=== PATIENT | female | born 2000 | race Caucasian/White ===

== ENCOUNTER 2024-05-16 14:23 | Emergency (ER) | payer MEDICAID, SELFPAY ==
--- NOTE | 2024-05-16 14:25 | EKG_ITS ---
[facility] Test Date: 2024-05-16 Pat Name: TYRESE DANIELS Department: Room: - Gender: Female Public Health Nurse: : 2000 Requested By: ED Temporary Provider Order Number: [id number] Reading MD: ED Temporary Provider Measurements Intervals [place] Rate: 92 P: 41 [place]: 96 QRS: 77 QRSD: 94 T: 55 QT: 364 QTc: 452 Interpretive Statements SINUS RHYTHM WITH SHORT [place] INTERVAL Compared to ECG 04/30/2024 14:24:09 T-wave abnormality no longer present Possible ischemia no longer present /store/S0/[id number]
[2024-05-16 14:53] VITALS: BP 116/78; PULSE 97; RESP 18; TEMP 36.8; O2SAT 98; BMI 24.8
--- NOTE | 2024-05-16 15:29 | PD.EDRME ---
Rapid Medical Screening Exam RME Arrival date/time: 05/16/24 14:23 Chief Complaint: Arrhythmia/Palpitations Time Seen by Provider: 05/16/24 14:44 Vital signs: Vital Signs Temperature 98.2 F 05/16/24 14:53 Pulse Rate 97 05/16/24 14:53 Respiratory Rate 18 05/16/24 14:53 Blood Pressure 116/78 05/16/24 14:53 Pulse Oximetry (%) 98 05/16/24 14:53 Oxygen Delivery Method Room Air 05/16/24 14:53 Vital signs reviewed by provider: Yes RME Narrative: 24-year-old female presents for evaluation of persistent palpitations x 3 months. She reports sensation of irregular heartbeat and lightheadedness. She notes intermittent substernal chest pain. Denies cough, fever, rash, weight loss. She is pending and outpatient workup with cardiology in July.
[2024-05-16 15:48] LABS: Basophils # (Auto) 0.1 Thou/mm3 (0.0-0.2); Basophils % (Auto) 1 % (0-2.5); Eosinophils # (Auto) 0.3 Thou/mm3 (0.0-0.5); Eosinophils % (Auto) 3 % (0-10); Hematocrit 38.5 % (36.0-46.0); Hemoglobin 12.8 g/dL (12.0-16.0); Immature Granulocytes % (Auto) 0 % (0-0); Immature Granulocytes Auto 0.04 Thou/mm3 (0.00-0.00); Lymphocytes # (Auto) 1.7 Thou/mm3 (1.0-4.8); Lymphocytes % (Auto) 16 % (10-50); Mean Corpuscular HGB Conc 33.2 g/dl (31.0-37.0); Mean Corpuscular Hemoglobin 27.4 pg (25.0-35.0); Mean Corpuscular Volume 82 fL (80-100); Monocytes # (Auto) 0.9 Thou/mm3 (0.0-0.8); Monocytes % (Auto) 9 % (0-12); Neutrophils # (Auto) 7.1 Thou/mm3 (1.8-7.7); Neutrophils % (Auto) 71 % (37-80); Nucleated Red Blood Cell % 0 /100 WBC (0); Platelet Count 311 Thou/mm3 (140-440); RDW Standard Deviation 40.9 fL (36.4-46.3); Red Blood Count 4.68 Miln/mm3 (4.00-5.20); White Blood Count 10.1 Thou/mm3 (3.6-11.0)
[2024-05-16 15:58] LABS: Partial Thromboplastin Time 28.2 Seconds (22.0-36.0); Prothrombin Time 11.2 Seconds (9.0-12.2)
[2024-05-16 16:04] LABS: B-Type Natriuretic Peptide < 20 pg/mL (0-100)
[2024-05-16 16:18] LABS: Collection Type, Urine Clean Catch
[2024-05-16 16:21] LABS: Alanine Aminotransferase 9 U/L (10-49); Albumin, Serum 4.8 gm/dL (3.5-5.0); Albumin/Globulin Ratio 1.8 (1.2-2.2); Alkaline Phosphatase 89 U/L (46-116); Anion Gap 6 (7-16); Aspartate Amino Transferase 12 U/L (0-34); BUN/Creatinine Ratio 12 Ratio (12-20); Bilirubin,Total 0.8 mg/dL (0.3-1.2); Blood Urea Nitrogen 7 mg/dL (9-23); Calcium 9.7 mg/dL (8.3-10.6); Calcium (Corrected) 9.7 mg/dL (8.5-10.1); Carbon Dioxide 25.7 mMol/L (20.0-31.0); Chloride 105 mMol/L (98-107); Creatinine (Component) 0.6 mg/dL (0.6-1.3); Estimated Creatinine Clearance 122.8 mL/min (>60); Globulin 2.7 gm/dL (2.3-3.5); Glucose 90 mg/dL (74-106); Osmolality,Calculated 271 (275-295); Potassium 3.9 mMol/L (3.4-5.1); Sodium 137 mMol/L (136-145); Thyroid Stimulating Hormone 0.77 uIU/mL (0.55-4.78); Total Protein 7.5 gm/dL (5.7-8.2); Troponin I < 0.002 ng/mL (0.0-0.045); eGFR > 60 See Note
[2024-05-16 16:32] LABS: HCG Qualitative,Urine Negative
[2024-05-16 16:36] LABS: Bilirubin,Urine Negative (Negative); Blood,Urine Negative (Negative); Clarity,Urine Clear (Clear/Hazy); Color,Urine Colorless (Lt Yel-Yel); Glucose, Urine Negative (Negative); Ketones,Urine Negative (Negative); Leukocyte Esterase,Urine Positive (Negative); Nitrite,Urine Negative (Negative); PH,Urine 6.5 (5.0-7.0); Protein,Urine Negative (Neg - Trace); RBC,Urine 1 /hpf (0-3); Specific Gravity,Urine 1.009 (1.001-1.035); Squamous Epithelial Cell,Urine 11 /hpf (0-5); Urobilinogen,Urine Negative mg/dL (0.0-1.0); WBC,Urine 4 /hpf (0-5)
[2024-05-16 16:50] LABS: Amphetamine/Methamp Scrn,U Negative (Negative); Barbiturate Screen,Urine Negative (Negative); Benzodiazepines Screen,Urine Negative (Negative); Benzoylecgonine Screen, Ur Negative (Negative); Fentanyl Screen,Urine Negative (Negative); Opiate Screen,Urine Negative (Negative); THC Screen,Urine Negative (Negative)
--- NOTE | 2024-05-16 17:31 | PC.NURSE ---
PT REQUESTING NOT TO HAVE X-RAY DONE DUE TO HER NOT WANTING TO BE EXPOSED TO TO MUCH RADIATION. WILL INFORM PROVIDER AT THIS TIME
--- NOTE | 2024-05-16 17:39 | PD.EDARRY ---
ED Arrhythmia Palp. RME/HPI General Chief Complaint: Arrhythmia/Palpitations Stated Complaint: PALPATIONS WITH CHEST PAIN Time Seen by Provider: 05/16/24 14:44 Arrival date/time: 05/16/24 14:23 Limitations: no limitations RME / HPI RME / HPI narrative: 24-year-old female presents for evaluation of persistent palpitations x 3 months. She reports sensation of irregular heartbeat and lightheadedness. She notes intermittent substernal chest pain. Denies cough, fever, rash, weight loss. She is pending and outpatient workup with cardiology in July. Related Data Home Medications ?Medication ?Instructions ?Recorded ?Confirmed vit no.37-iron fum 29 mg 37 tab PO QDAY 02/24/19 10/31/22 iron-folic acid 1 mg chewable tablet (PreNata) Previous Rx's ?Medication ?Instructions ?Recorded methocarbamol 750 mg tablet 750 mg PO Q8H spasm #24 tabs 02/24/24 meclizine 25 mg tablet 25 mg PO BID #14 tabs 04/30/24 naproxen 500 mg tablet (Naprosyn) 500 mg PO BID PRN pain #20 tabs 05/23/24 Allergies Allergy/AdvReac Type Severity Reaction Status Date / Time No Known Allergies Allergy Verified 05/23/24 11:01 Review of Systems Constitutional Constitutional: Denies excessive sweating, Denies fever(s), Denies headache(s), Denies poor appetite, Denies night sweats and Denies weakness ENT Ears, Nose, Mouth, and Throat: Denies dizziness, Denies headache(s) and Denies neck pain Cardiovascular Cardiovascular: Denies acrocyanosis, Denies chest pain, Denies diaphoresis, Denies dyspnea, Denies leg edema, Denies lightheadedness, Reports palpitations, Reports rapid heart rate and Denies syncope Respiratory Respiratory: Denies cough, Denies dyspnea, Denies hemoptysis and Denies wheezing Gastrointestinal Gastrointestinal: Denies abdominal pain, Denies nausea and Denies vomiting Genitourinary Genitourinary: Denies dysuria and Denies hematuria Musculoskeletal Musculoskeletal: Denies back pain, Denies muscle weakness and Denies neck pain Integumentary/Breasts Skin/Breast: Denies rash Neurologic Neurologic: Denies dizziness, Denies headache(s), Denies seizure-like activity, Denies syncope and Denies weakness Endocrine Endocrine: Denies excessive sweating and Reports palpitations Allergic/Immunologic Allergic/Immunologic: Denies wheezing Past Medical History Past Medical History CARDIAC: Negative Cardiac Disorders or Congestive Heart Failure RESPIRATORY: Negative Chronic Obstructive Pulmonary Disease (COPD) or Asthma GENITOURINARY: Negative Renal Disease REPRODUCTIVE: Positive Pelvic Inflammatory Disease ENDOCRINE: Negative Diabetes Mellitus Type 1 or Diabetes Mellitus Type 2 HEMATOLOGIC: Negative Sickle Cell Disease Social History SMOKING STATUS: Never smoker ED Exam General Limitations: Present no limitations General appearance: Present alert and in no apparent distress Head Head exam: Present atraumatic and normocephalic Eye Eye exam: Present normal appearance and EOMI; Absent scleral icterus ENT ENT exam: Present normal oropharynx and mucous membranes moist Neck Neck exam: Present normal inspection and full ROM Chest Chest inspection: Present normal inspection and symmetric chest wall rise Respiratory Respiratory exam: Present normal lung sounds bilaterally; Absent respiratory distress or wheezes Cardiovascular Cardiovascular exam: Present regular rate, normal heart sounds and +S1 Abdominal Exam Abdominal exam: Present soft; Absent distention or tenderness Extremities Exam Extremities exam: Present normal inspection, full ROM and normal capillary refill; Absent pedal edema or calf tenderness Neurological Exam Neurological exam: Present alert and normal gait Psychiatric Psychiatric exam: Present normal affect Skin Skin exam: Present warm and dry; Absent cyanosis Course Quality Measures none Orders Category Date Time Status EKG (ED ONLY) *Do not use* NOW Care 05/16/24 14:25 Completed EKG (ED ONLY) *Do not use* NOW Care 05/16/24 15:29 Completed EKG (ED Only) Stat Exams 05/16/24 14:25 Draft EKG (ED Only) Stat Exams 05/16/24 15:29 Ordered XR chest 2V Stat Exams 05/16/24 15:29 Stop Req B-Type Natriuretic Peptide Stat Lab 05/16/24 15:37 Completed CBC Stat Lab 05/16/24 15:37 Completed Comprehensive Metabolic Panel Stat Lab 05/16/24 15:37 Completed Drug Screen,Urine Stat Lab 05/16/24 15:58 Completed HCG Qualitative,Urine Stat Lab 05/16/24 15:58 Completed Magnesium Stat Lab 05/16/24 15:37 Completed Partial Thromboplastin Time Stat Lab 05/16/24 15:37 Completed Prothrombin Time with INR Stat Lab 05/16/24 15:37 Completed Thyroid Stimulating Hormone Stat Lab 05/16/24 15:37 Completed Troponin I Stat Lab 05/16/24 15:37 Completed Urinalysis Stat Lab 05/16/24 15:58 Completed Vital Signs Vital signs: Vital Signs Temperature 98.2 F 05/16/24 14:53 Pulse Rate 97 05/16/24 14:53 Respiratory Rate 18 05/16/24 14:53 Blood Pressure 116/78 05/16/24 14:53 Pulse Oximetry (%) 98 05/16/24 14:53 Oxygen Delivery Method Room Air 05/16/24 14:53 Pulse ox 98% on room air, within normal limits. Arrhythmia/Palpitations MDM Narrative MDM Narrative:: 24-year-old female presents the ED for evaluation of palpitations that have been intermittent for the last several months. Vital signs reassuring. Cardiac workup today showed no evidence of ACS, no A-fib or gross arrhythmia captured on EKG. Thyroid stimulating hormone within normal limits, pointing away from thyroid disorder. No gross electrolyte abnormalities or evidence of anemia. Chest x-ray today was deferred at patient's request given her concern for recurrent exposure to radiation. Ultimately the patient was discharged home with plan to follow-up with outpatient cardiology appointment in July. I spoke with patient at length regarding her results and advised her to closely monitor her caffeine intake, try to properly hydrate p.o. fluids and ensure adequate sleep. Strict return precautions were provided. Patient was agreeable with plan to follow-up with primary care in the next 2 to 3 days for reevaluation and possible earlier scheduling with cardiology. Patient was stable at time of discharge. Patient data External records reviewed:: [facility] previous records Clinical information provided by:: patient Social determinants that could affect healthcare access:: none Patient has the following chronic illnesses:: None reported. How is presenting disease/condition affected by chronic disease/condition?: no chronic disease Evaluation data The following diagnostics were reviewed and interpreted by me:: lab results, radiology exam(s) and EKG tracing(s) Lab and/or radiology exams considered but not ordered:: Considered not ordered. Interpretation Summary: EKG with nonspecific ST changes, normal rate, no ST elevations or depressions. No gross electrolyte abnormality or evidence of endorgan damage. No evidence of acute hemorrhage or systemic infection. Medications / Prescriptions Medications or Prescriptions considered but not ordered:: Considered not ordered. Medication administrations:: Considered nonoperative. Consultations Consultation(s) initiated? (list below): No Diagnosis Differential diagnosis arrhythmia/palpitations: palpitations, anxiety, sinus tachycardia, artial fibrillation, artial flutter, supraventricular tachycardia, ventricular tachycardia, WPW and other (Anemia, thyroid disorder.) Most likely diagnosis given after review of the tests above:: Nonspecific palpitations. Admission Indicated Admission indicated?: not indicated Admission Request Was there a request for admission?: No Disposition Plan Disposition Plan: Discharge Discharge Attestation Discharge Attestation: The patient and all family members were given an opportunity to ask questions and understood the discharge instructions. Discharge instructions specifically effects, indications for sooner follow up or return to the emergency department, and the expected course of current diagnosis. Patient condition: Stable Discharge Plan Plan Patient Disposition: HOME (Self Care) Disposition Comment: stable Prescriptions/Referrals Prescriptions/Med Rec: No Action PreNata 29 mg iron- 1 mg Tablet,Chewable 37 tab PO QDAY methocarbamol 750 mg tablet 750 mg PO Q8H Qty: 24 0RF meclizine 25 mg tablet 25 mg PO BID Qty: 14 0RF naproxen [Naprosyn] 500 mg tablet 500 mg PO BID PRN (Reason: pain) Qty: 20 0RF Referrals: Ptarice Sheppard MD [Primary Care Provider] - In 1 week Problem List Clinical Impression: Palpitations, Anxiety Patient/Caregiver Discharge Instructions Other Activity Instructions:: Follow-up with primary care in the next 24 to 48 hours for reevaluation of symptoms. Continue to hydrate to thirst. Follow-up with cardiology referral as planned in July. Return to the ED if your symptoms worsen or change. Education Materials: ED Palpitations Print Language: Irish Stand Alone Forms: Elenita Award Info., Patient Portal Info Letter PA/[employer] SERVICES MANAGER Supervising Physician PA/[employer] SERVICES MANAGER Supervising Physician: Dr. Dyer
--- NOTE | 2024-05-16 18:13 | PC.NURSE ---
PATIENT STATES THAT SHE DOES NOT WANT A FULL WORKUP AND WOULD LIKE TO BE DISCHARGED; ED PROVIDER MADE AWARE AND DISCHARGE INSTRUCTIONS PREPARED, GIVEN TO, AND SIGNED BY PATIENT.
== END 2024-05-16 18:15 | disposition home or self-care (01) ==
PROVIDERS: Physician Assistant; Emergency Provider Emergency Medicine; PCP Family Medicine
DX: F41.9 Anxiety disorder, unspecified (principal); R00.2 Palpitations
CPT/HCPCS: 36415; 80053; 80307; 81001; 81025; 83735; 83880; 84443; 84484; 85025; 85610; 85730; 93005; 99283

== ENCOUNTER 2024-05-23 10:58 | Emergency (ER) | payer MEDICAID, SELFPAY ==
[2024-05-23 10:59] VITALS: BMI 24.8
[2024-05-23 11:17] VITALS: BP 111/71; PULSE 98; RESP 18; TEMP 37; O2SAT 98
--- NOTE | 2024-05-23 11:27 | XR_ITS ---
Examination: PA lateral chest 2 views Technique: Upright PA lateral chest 2 views Exam date and time: May 23, 2024 1209 hrs. Indications: Chest pain beginning several days ago. Findings: Normal heart size The lungs are clear The osseous structures are intact Impression: No active disease
[2024-05-23] MEDS: KETOROLAC INJ 60 MG/2 ML VIAL IM (11:35)
--- NOTE | 2024-05-23 13:12 | EDNOTE_ITS ---
ED SOB =RME/HPI General Chief Complaint: Shortness of Breath/Dyspnea Stated Complaint: CHEST PAIN WITH SOB, WORSENED THIS AM Time Seen by Provider: 05/23/24 11:11 Source: patient Arrival date/time: 05/23/24 10:58 This is a 24-year-old female who presented to the emergency department with acute left-sided chest pain that began this morning. Patient reports that pain was exacerbated with movement and deep inspiration. Reports that she slept with her 1-year-old baby is unsure if she might have slept in the wrong position. Did take Tylenol at home with no relief of symptoms prompting her ED visit today. Mode of arrival: ambulatory Related Data Home Medications ?Medication ?Instructions ?Recorded ?Confirmed vit no.37-iron fum 29 mg 37 tab PO QDAY 02/24/19 10/31/22 iron-folic acid 1 mg chewable tablet (PreNata) Previous Rx's ?Medication ?Instructions ?Recorded methocarbamol 750 mg tablet 750 mg PO Q8H spasm #24 tabs 02/24/24 meclizine 25 mg tablet 25 mg PO BID #14 tabs 04/30/24 naproxen 500 mg tablet (Naprosyn) 500 mg PO BID PRN pain #20 tabs 05/23/24 Allergies Allergy/AdvReac Type Severity Reaction Status Date / Time No Known Allergies Allergy Verified 05/23/24 11:01 Review of Systems Review of Systems Systems Reviewed: All systems reviewed, normal except as documented Narrative Review of Systems: Gen: No fever, no chills, no weight loss EYES: No discharge, no visual changes, no pain HEENT: No ear pain, no congestion, no sore throat PULM: No shortness of breath, no cough, no congestion CV: +chest pain worsening with deep inspiration and movement, no dyspnea on exertion, no palpitations GI: No nausea, no vomiting, no diarrhea, no pain, no constipation : No frequency, no urgency,? no dysuria Musc/skel: No joint pain, no back pain Skin: No rash? \ ED Exam Narrative Physical exam: General: Sittiing in Exam table in no acute distress, answering questions appropriately HENT: normocephalic, atraumatic, EOMI, PERRLA, moist mucous membranes Chest: chest wall is nontender Cardiac: regular rate and rhythm, normal S1 and S2, no murmurs, rubs, or gallops, capillary refill ?2 seconds Pulmonary: clear to auscultation bilaterally, no wheezing, crackles, or rhonchi Abdominal: active bowel sounds, soft, nontender, nondistended Neuro: A&OX3, CN II-XII intact, sensation grossly intact bilaterally in UE and LE. Skin: no rashes, no ecchymosis Ext: no lower extremity edema Course Quality Measures none Orders Category Date Time Status EKG (ED ONLY) *Do not use* NOW Care 05/23/24 11:28 Completed EKG (ED Only) Stat Exams 05/23/24 11:27 Ordered XR chest 2V Stat Exams 05/23/24 11:27 Completed Ketorolac Inj [Toradol Inj] Med 05/23/24 11:28 Discontinued 60 mg IM X1 ONE Vital Signs Vital signs: Vital Signs Temperature 98.6 F 05/23/24 11:17 Pulse Rate 98 05/23/24 11:17 Respiratory Rate 18 05/23/24 11:17 Blood Pressure 111/71 05/23/24 11:17 Pulse Oximetry (%) 98 05/23/24 11:17 Oxygen Delivery Method Room Air 05/23/24 11:17 Shortness of Breath / Dyspnea MDM Narrative MDM Narrative:: This is a 24-year-old female who presented to the emergency department with acute left-sided chest pain that began this morning. Patient reports that pain was exacerbated with movement and deep inspiration. Reports that she slept with her 1-year-old baby is unsure if she might have slept in the wrong position. Did take Tylenol at home with no relief of symptoms prompting her ED visit today. Chest x-ray completed no active disease. No full cardiac workup initiated due to patient's low risk history. Patient's pain is more exacerbated with deep inspiration and movement. She was given pain medication which relieved her symptoms. She will be discharged with follow-up with her PCP. Strict ER precautions given Patient data External records reviewed:: [facility] previous records Clinical information provided by:: patient Social determinants that could affect healthcare access:: none Patient has the following chronic illnesses:: History of anxiety How is presenting disease/condition affected by chronic disease/condition?: uneffected by Evaluation data The following diagnostics were reviewed and interpreted by me:: radiology exam(s) and EKG tracing(s) Lab and/or radiology exams considered but not ordered:: No Interpretation Summary: EKG medically necessary in the evaluation of chest pain and interpreted by me and ED physician at the time of patient evaluation. Normal sinus rhythm with a rate of 85. [place] and QT intervals within normal limits. No ST/T changes. No STEMI. Interpretation: Normal EKG Examination: PA lateral chest 2 views Technique: Upright PA lateral chest 2 views Exam date and time: May 23, 2024 1209 hrs. Indications: Chest pain beginning several days ago. Findings: Normal heart size The lungs are clear The osseous structures are intact Impression: No active disease Medications / Prescriptions Medications or Prescriptions considered but not ordered:: no Medication administrations:: Medication Administration History Discontinued Medications Ketorolac Tromethamine (Ketorolac Inj 60 Mg/2 Ml Vial) 60 mg IM X1 ONE Stop: 05/23/24 11:29 Last Admin: 05/23/24 11:35 Dose: 60 mg Documented By: JAYCE All medications administered and effective Consultations Consultation(s) initiated? (list below): No Diagnosis Shortness of Breath Differential Diagnosis: other (costochondritis, bronchitis, pneumonia,) Most likely diagnosis given after review of the tests above:: Costochondritis Admission Indicated Admission indicated?: not indicated Admission Request Was there a request for admission?: No Disposition Plan Disposition Plan: Discharge Discharge Attestation Discharge Attestation: The patient and all family members were given an opportunity to ask questions and understood the discharge instructions. Discharge instructions specifically effects, indications for sooner follow up or return to the emergency department, and the expected course of current diagnosis. Patient condition: Stable Discharge Plan Plan Patient Disposition: HOME (Self Care) Patient condition on transfer: Stable Prescriptions/Referrals Prescriptions/Med Rec: New naproxen [Naprosyn] 500 mg tablet 500 mg PO BID PRN (Reason: pain) Qty: 20 0RF No Action PreNata 29 mg iron- 1 mg Tablet,Chewable 37 tab PO QDAY methocarbamol 750 mg tablet 750 mg PO Q8H Qty: 24 0RF meclizine 25 mg tablet 25 mg PO BID Qty: 14 0RF Referrals: Patrice Sheppard MD [Primary Care Provider] - In 1 week Problem List Clinical Impression: Acute costochondritis Patient/Caregiver Discharge Instructions Education Materials: ED Chest Wall Pain, Costochondritis Additional Instructions: Please continue with NSAID therapy as directed. As advised costochondritis is a swelling or tenderness of costal joints can cause pain with deep inspiration and movement. -Please follow-up with your primary doctor continue with your referrals and cardiology referral as directed Return to the emergency department this any worsening symptoms change in condition. Print Language: Sami Stand Alone Forms: Elenita Award Info., Patient Portal Info Letter Attestation Attestation The patient was seen by the midlevel practitioner. I, the co-signing physician, was present during the entire ER visit. While I did not physically examine the patient, I was available for consultation as needed.
== END 2024-05-23 14:09 | disposition home or self-care (01) ==
PROVIDERS: Emergency Provider Emergency Medicine; PCP Family Medicine
DX: M94.0 Chondrocostal junction syndrome [Tietze] (principal)
CPT/HCPCS: 71046; 93005; 96372; 99283; J1885

== ENCOUNTER 2024-06-16 23:09 | Emergency (ER) | payer MEDICAID, SELFPAY ==
[2024-06-16 23:09] VITALS: BMI 25.2
--- NOTE | 2024-06-16 23:16 | EKG_ITS ---
[facility] Test Date: 2024-06-16 Pat Name: TYRESE DANIELS Department: Room: - Gender: Female Forge Hand: : 2000 Requested By: Oseas Coronado Order Number: [id number] Reading MD: Oseas Coronado Measurements Intervals [place] Rate: 81 P: 56 [place]: 120 QRS: 79 QRSD: 89 T: 67 QT: 380 QTc: 443 Interpretive Statements SINUS RHYTHM Compared to ECG 05/16/2024 14:58:44 Short [place] interval no longer present /store/S0/[id number]
[2024-06-16 23:44] VITALS: BP 111/63; PULSE 87; RESP 17; TEMP 36.7; O2SAT 98
--- NOTE | 2024-06-17 00:28 | EDNOTE_ITS ---
ED Anxiety RME/HPI General Chief Complaint: Chest Pain Stated Complaint: I THINK IM HAVING A HEART ATTACK HX ANXIETY Time Seen by Provider: 06/17/24 00:14 Arrival date/time: 06/16/24 23:09 24F with history of anxiety presents to ED with CP, SOB, L arm/numbness, dizziness and weakness today. Patient has been here multiples times for this with normal cardiac work-ups. Limitations: no limitations Related Data Home Medications ?Medication ?Instructions ?Recorded ?Confirmed vit no.37-iron fum 29 mg 37 tab PO QDAY 02/24/19 10/31/22 iron-folic acid 1 mg chewable tablet (PreNata) Previous Rx's ?Medication ?Instructions ?Recorded methocarbamol 750 mg tablet 750 mg PO Q8H spasm #24 tabs 02/24/24 meclizine 25 mg tablet 25 mg PO BID #14 tabs 04/30/24 naproxen 500 mg tablet (Naprosyn) 500 mg PO BID PRN pain #20 tabs 05/23/24 Allergies Allergy/AdvReac Type Severity Reaction Status Date / Time No Known Allergies Allergy Verified 06/16/24 23:13 Review of Systems Review of Systems Systems Reviewed: All systems reviewed, normal except as documented Constitutional Constitutional: Reports system reviewed and no additional complaints, except as documented, Denies fever(s) and Denies headache(s) ENT Ears, Nose, Mouth, and Throat: Denies disequilibrium, Denies headache(s) and Reports vertigo Cardiovascular Cardiovascular: Reports system reviewed and no additional complaints, except as documented, Reports as per HPI, Reports chest pain and Reports dyspnea Respiratory Respiratory: Reports system reviewed and no additional complaints, except as documented, Denies cough and Reports dyspnea Gastrointestinal Gastrointestinal: Reports system reviewed and no additional complaints, except as documented, Denies abdominal pain, Denies nausea and Denies vomiting Musculoskeletal Musculoskeletal: Reports numbness Neurologic Neurologic: Reports system reviewed and no additional complaints, except as documented, Reports as per HPI, Denies confusion, Denies disequilibrium, Denies headache(s), Reports numbness and Reports vertigo Psychiatric Psychiatric: Denies confusion Past Medical History Past Medical History CARDIAC: Negative Cardiac Disorders or Congestive Heart Failure RESPIRATORY: Negative Chronic Obstructive Pulmonary Disease (COPD) or Asthma GENITOURINARY: Negative Renal Disease REPRODUCTIVE: Positive Pelvic Inflammatory Disease ENDOCRINE: Negative Diabetes Mellitus Type 1 or Diabetes Mellitus Type 2 HEMATOLOGIC: Negative Sickle Cell Disease Social History SMOKING STATUS: Never smoker ED Exam General Limitations: Present no limitations General appearance: Present alert and in no apparent distress Head Head exam: Present atraumatic Eye Eye exam: Present normal appearance, PERRL and EOMI ENT ENT exam: Present normal exam, normal oropharynx and mucous membranes moist Neck Neck exam: Present normal inspection, full ROM and trachea midline Chest Chest inspection: Present normal inspection and symmetric chest wall rise Respiratory Respiratory exam: Present normal lung sounds bilaterally Cardiovascular Cardiovascular exam: Present regular rate, normal rhythm and normal heart sounds Abdominal Exam Abdominal exam: Present soft and normal bowel sounds Extremities Exam Extremities exam: Present normal inspection and full ROM Back Exam Back exam: Present normal inspection and full ROM Neurological Exam Neurological exam: Present alert, oriented X3 and CN II-XII intact Psychiatric Psychiatric exam: Present normal affect and normal mood Skin Skin exam: Present warm, dry, intact and normal color Course Quality Measures none Orders Category Date Time Status EKG (ED ONLY) *Do not use* NOW Care 06/16/24 23:16 Completed EKG (ED Only) Stat Exams 06/16/24 23:16 Ordered Diazepam [Valium] Med 06/17/24 00:14 Discontinued 5 mg PO X1 ONE Vital Signs Vital signs: Vital Signs Temperature 98.0 F 06/16/24 23:44 Pulse Rate 87 06/16/24 23:44 Respiratory Rate 17 06/16/24 23:44 Blood Pressure 111/63 06/16/24 23:44 Pulse Oximetry (%) 98 06/16/24 23:44 Oxygen Delivery Method Room Air 06/16/24 23:44 Anxiety MDM Narrative MDM Narrative: 24F with history of anxiety presents to ED with CP, SOB, L arm/numbness, dizziness and weakness today. Patient has been here multiples times for this with normal cardiac work-ups. Physical exam reveals clear lungs. RRR. Patient is afebrile, calm, alert, and looking through her phone. EKG is NSR. Patient declines valium for likely anxiety/panic attack. Patient will follow-up with PCP. Patient data External records reviewed:: [facility] previous records Clinical information provided by:: patient Social determinants that could affect healthcare access:: mental health Patient has the following chronic illnesses:: anxiety How is presenting disease/condition affected by chronic disease/condition?: exacerbated by Evaluation data The following diagnostics were reviewed and interpreted by me:: EKG tracing(s) Lab and/or radiology exams considered but not ordered:: ordered Interpretation Summary: above Medications / Prescriptions Medications or Prescriptions considered but not ordered:: ordered Medication administrations:: Medication Administration History Discontinued Medications Diazepam (Diazepam 5 Mg Tablet) 5 mg PO X1 ONE Stop: 06/17/24 00:15 Consultations Consultation(s) initiated? (list below): No Diagnosis Differential diagnosis anxiety: hyperventilation, panic disorder (attack), acute anxiety and other (ACS, PE) Most likely diagnosis given after review of the tests above:: panic attack Admission Indicated Admission indicated?: not indicated Admission Request Was there a request for admission?: No Disposition Plan Disposition Plan: Discharge Discharge Attestation Discharge Attestation: The patient and all family members were given an opportunity to ask questions and understood the discharge instructions. Discharge instructions specifically effects, indications for sooner follow up or return to the emergency department, and the expected course of current diagnosis. Patient condition: Stable Discharge Plan Plan Patient Disposition: HOME (Self Care) Disposition Comment: Stable Prescriptions/Referrals Prescriptions/Med Rec: No Action PreNata 29 mg iron- 1 mg Tablet,Chewable 37 tab PO QDAY methocarbamol 750 mg tablet 750 mg PO Q8H Qty: 24 0RF meclizine 25 mg tablet 25 mg PO BID Qty: 14 0RF naproxen [Naprosyn] 500 mg tablet 500 mg PO BID PRN (Reason: pain) Qty: 20 0RF Problem List Clinical Impression: Panic attack Patient/Caregiver Discharge Instructions Education Materials: Your Body's Response to Anxiety, ED Panic Attack Additional Instructions: Please follow-up with PCP within 24-48 hours and return immediately if symptoms worsen. If problem persists, see PCP for possible referral to psych/counseling and/or cardiology. Print Language: Namibian Stand Alone Forms: Patient Portal Info Letter PA/SKYLAR Supervising Physician SANTHOSH/SKYLAR Supervising Physician: Dr. Coello
--- NOTE | 2024-06-17 00:38 | PC.NURSE ---
patient refused Valium PO, patient stated is driving and has never taken any anti-anxiety medications. patient states she has no one that is able to pick her up. Provider made aware.
== END 2024-06-17 00:41 | disposition home or self-care (01) ==
LOC: SERX 06-17 05:05
PROVIDERS: Emergency Provider Emergency Medicine; PCP Family Medicine
DX: F41.0 Panic disorder [episodic paroxysmal anxiety] (principal); R07.9 Chest pain, unspecified; R06.02 Shortness of breath; R20.0 Anesthesia of skin; R42 Dizziness and giddiness; R53.1 Weakness
CPT/HCPCS: 93005; 99283

== ENCOUNTER 2024-11-06 14:07 | Emergency (ER) | payer MEDICAID, SELFPAY ==
[2024-11-06 14:38] VITALS: BP 107/73; PULSE 85; RESP 18; TEMP 37.2; O2SAT 99; BMI 22.2
--- NOTE | 2024-11-06 14:50 | PD.EDRME ---
Rapid Medical Screening Exam RME Arrival date/time: 11/06/24 14:07 This is a 24-year-old female that comes in with complaints of diarrhea on and off for the past month. Patient states that for the past week she has had nausea vomiting and diarrhea. Patient states her stool is liquid. Patient feels like she is dehydrated. Patient was seen by her primary provider and was sent to the emergency room. I have greeted and performed a focused initial assessment of this patient. Initial appropriate labs ordered at this time. A comprehensive ED assessment and evaluation of the patient and analysis of all test and completion of medical decision making process will be conducted by additional ED provider. Chief Complaint: Nausea/Vomiting/Diarrhea Time Seen by Provider: 11/06/24 14:32 Vital signs: Vital Signs Temperature 98.9 F 11/06/24 14:38 Pulse Rate 85 11/06/24 14:38 Respiratory Rate 18 11/06/24 14:38 Blood Pressure 107/73 11/06/24 14:38 Pulse Oximetry (%) 99 11/06/24 14:38 Oxygen Delivery Method Room Air 11/06/24 14:38
[2024-11-06] MEDS: ONDANSETRON ODT 4 MG TABRAP PO (15:16)
[2024-11-06 15:33] LABS: Basophils % (Auto) 1 % (0-2.5); Eosinophils # (Auto) 0.1 Thou/mm3 (0.0-0.5); Eosinophils % (Auto) 2 % (0-10); Hemoglobin 12.8 g/dL (12.0-16.0); Immature Granulocytes % (Auto) 1 % (0-0); Immature Granulocytes Auto 0.03 Thou/mm3 (0.00-0.00); Lymphocytes # (Auto) 1.2 Thou/mm3 (1.0-4.8); Lymphocytes % (Auto) 17 % (10-50); Mean Corpuscular HGB Conc 33.7 g/dl (31.0-37.0); Mean Corpuscular Hemoglobin 27.8 pg (25.0-35.0); Mean Corpuscular Volume 83 fL (80-100); Monocytes # (Auto) 0.8 Thou/mm3 (0.0-0.8); Monocytes % (Auto) 13 % (0-12); Neutrophils # (Auto) 4.5 Thou/mm3 (1.8-7.7); Neutrophils % (Auto) 68 % (37-80); Nucleated Red Blood Cell % 0 /100 WBC (0); Platelet Count 262 Thou/mm3 (140-440); RDW Standard Deviation 41.8 fL (36.4-46.3); White Blood Count 6.6 Thou/mm3 (3.6-11.0)
[2024-11-06 16:00] LABS: Alanine Aminotransferase 7 U/L (10-49); Albumin, Serum 4.5 gm/dL (3.5-5.0); Albumin/Globulin Ratio 1.7 (1.2-2.2); Alkaline Phosphatase 77 U/L (46-116); Anion Gap 7 (7-16); Aspartate Amino Transferase 15 U/L (0-34); BUN/Creatinine Ratio 14 Ratio (12-20); Bilirubin,Total 1.9 mg/dL (0.3-1.2); Blood Urea Nitrogen 10 mg/dL (9-23); Calcium 8.4 mg/dL (8.3-10.6); Calcium (Corrected) 8.4 mg/dL (8.5-10.1); Carbon Dioxide 27.8 mMol/L (20.0-31.0); Chloride 106 mMol/L (98-107); Creatinine (Component) 0.7 mg/dL (0.6-1.3); Estimated Creatinine Clearance 105.2 mL/min (>60); Globulin 2.7 gm/dL (2.3-3.5); Glucose 81 mg/dL (74-106); Lipase 33 U/L (12-53); Osmolality,Calculated 279 (275-295); Potassium 3.3 mMol/L (3.4-5.1); Sodium 141 mMol/L (136-145); Total Protein 7.2 gm/dL (5.7-8.2); eGFR > 60 See Note
[2024-11-06 16:23] LABS: Collection Type, Urine Voided
[2024-11-06 16:40] LABS: HCG Qualitative,Urine Negative
[2024-11-06 16:42] LABS: Bacteria,Urine Rare; Bilirubin,Urine Negative (Negative); Blood,Urine 2+ (Negative); Clarity,Urine Hazy (Clear/Hazy); Color,Urine Yellow (Lt Yel-Yel); Culture Indicated,Urine Contaminated; Glucose, Urine Negative (Negative); Ketones,Urine Negative (Negative); Leukocyte Esterase,Urine Positive (Negative); Nitrite,Urine Negative (Negative); Protein,Urine Negative (Neg - Trace); RBC,Urine 4 /hpf (0-3); Specific Gravity,Urine 1.026 (1.001-1.035); Squamous Epithelial Cell,Urine 12 /hpf (0-5); WBC,Urine 18 /hpf (0-5)
[2024-11-06 17:10] VITALS: BP 98/64; PULSE 65; RESP 17; TEMP 36.9; O2SAT 97
--- NOTE | 2024-11-06 17:53 | EDNOTE_ITS ---
Nausea/Vomit./Diarrhea-RME/HPI General Chief complaint: Nausea/Vomiting/Diarrhea Stated complaint: DIARRHEA, ABD PAIN, VOMIT X 4 DAYS; LIKE A RIVER Time Seen by Provider: 11/06/24 14:32 Arrival date/time: 11/06/24 14:07 RME / HPI RME / HPI Narrative: 24-year-old female that comes in with complaints of diarrhea on and off for the past month. Patient states that for the past week she has had nausea vomiting and diarrhea. Patient states her stool is liquid. Patient feels like she is dehydrated. Patient was seen by her primary provider and was sent to the emergency room. Related Data Home Medications ?Medication ?Instructions ?Recorded ?Confirmed vit no.37-iron fum 29 mg 37 tab PO QDAY 02/2410/31/22 iron-folic acid 1 mg chewable tablet (PreNata) Previous Rx's ?Medication ?Instructions ?Recorded methocarbamol 750 mg tablet 750 mg PO Q8H spasm #24 ta bs 02/24/24 meclizine 25 mg tablet 25 mg PO BID #14 tabs naproxen 500 mg tablet (Naprosyn) 500 mg PO BID PRN pa in #20 tabs 05/23/24 dicyclomine 20 mg tablet 20 mg PO QID PRN abdominal p ain 11/06/24 #30 tabs prednisone 50 mg tablet 50 mg PO QDAY #7 tabs Allergies Allergy/AdvReac Type Severity Reaction Status Date / Time No Known Allergies Allergy Verified 11/06/24 14:11 Review of Systems Review of Systems Narrative Review of Systems: Review of system reviewed and within normal limits except mentioned in HPI ED Exam Narrative Physical exam: VITAL SIGNS: Reviewed. GENERAL APPEARANCE: Alert and interactive, follows commands, no acute distress, HEAD AND FACE: Non-traumatic. ENT: PERRL, pink conjunctivitis, eyelid no trauma, Mucous membrane moist. NECK: Supple, nontender, no nuchal rigidity. CHEST: No tenderness, no crepitus, no paradoxical movement, no retractions. LUNGS: Clear, well ventilated, symmetric, no rales, no wheezing, no ronchi, no stridor, good breath sounds bilaterally. HEART: Regular rate, regular rhythm, no murmur, no gallops. ABDOMEN: Soft, positive bowel sounds, nondistended, no guarding, nontender, no rebound, no masses, RECTAL: Deferred. GENITAL: Deferred. NEUROLOGICAL: Gross motor function intact sensory function intact, Appropriate for age. MUSCULOSKELETAL: low back nontender, full range of motion. EXTREMITIES: Nontender, full range of motion. SKIN: Color pink, dry, no rash, no lacerations, no abrasions, no contusions. LYMPHATICS: Deferred. Course Quality Measures none Orders Category Date Time Status CBC Stat Lab 11/06/24 15:08 Completed Comprehensive Metabolic Panel Stat Lab 11/06/24 15:08 Completed HCG Qualitative,Urine Stat Lab 11/06/24 16:19 Completed Lipase Stat Lab 11/06/24 15:08 Completed Urinalysis, C/S if Indicated Stat Lab 11/06/24 16:19 Completed Ondansetron Odt [Zofran Odt] Med 11/06/24 14:52 Discontinued 4 mg PO X1 ONE Vital Signs Vital signs: Vital Signs Temperature 98.9 F 11/06/24 14:38 Pulse Rate 85 11/06/24 14:38 Respiratory Rate 18 11/06/24 14:38 Blood Pressure 107/73 11/06/24 14:38 Pulse Oximetry (%) 99 11/06/24 14:38 Oxygen Delivery Method Room Air 11/06/24 14:38 Nausea/Vomiting/Diarrhea MDM Narrative MDM Narrative:: 24-year-old female that comes in with complaints of diarrhea on and off for the past month. Patient states that for the past week she has had nausea vomiting and diarrhea. Patient states her stool is liquid. Patient feels like she is dehydrated. Patient was seen by her primary provider and was sent to the emergency room. Patient told me that she had more than 10 pounds of weight loss in 1 month time. Patient's workup today all came back unremarkable. I suspect patient is having irritable bowel disease/syndrome. Patient was advised to closely follow-up with PCP and for referral to GI specialist. Patient agrees with the plan. Patient data External records reviewed:: None Clinical information provided by:: patient Social determinants that could affect healthcare access:: none Patient has the following chronic illnesses:: None How is presenting disease/condition affected by chronic disease/condition?: no chronic disease Evaluation data The following diagnostics were reviewed and interpreted by me:: lab results Lab and/or radiology exams considered but not ordered:: None Interpretation Summary: See results MDM Medications / Prescriptions Medications / Prescriptions considered but not ordered:: None Medication administrations:: Medication Administration History Discontinued Medications Ondansetron HCl (Ondansetron Odt 4 Mg Tabrap) 4 mg PO X1 ONE; Protocol Stop: 11/06/24 14:53 Last Admin: 11/06/24 15:16 Dose: 4 mg Documented By: Zofran Consultations Consultation(s) initiated? (list below): No Diagnosis Nausea Differential Diagnosis: traveler's diarrhea, gastroenteritis and deh ydration Most likely diagnosis given after review of the tests above:: Chronic diarrhea, suspect irritable bowel disease Admission Indicated Admission indicated?: not indicated Admission Request Was there a request for admission?: No Disposition Plan Disposition Plan: Discharge Discharge Attestation Discharge Attestation: The patient was given an opportunity to ask questions and understood the discharge instructions. Discharge instructions specifically effects, indications for sooner follow up or return to the emergency department, and the expected course of current diagnosis. Patient condition: Stable Discharge Plan Plan Patient Disposition: HOME (Self Care) Discharge Disposition comment: Stable Prescriptions/Referrals Prescriptions/Med Rec: New dicyclomine 20 mg tablet 20 mg PO QID PRN (Reason: abdominal pain) Qty: 30 0RF prednisone 50 mg tablet 50 mg PO QDAY Qty: 7 0RF No Action PreNata 29 mg iron- 1 mg Tablet,Chewable 37 tab PO QDAY methocarbamol 750 mg tablet 750 mg PO Q8H Qty: 24 0RF meclizine 25 mg tablet 25 mg PO BID Qty: 14 0RF naproxen [Naprosyn] 500 mg tablet 500 mg PO BID PRN (Reason: pain) Qty: 20 0RF Referrals: No Primary/Family,Physician [Primary Care Provider] - In 1 week Problem List Clinical Impression: Chronic diarrhea, Irritable bowel disease Patient/Caregiver Discharge Instructions Discharge Activity: activity as tolerated Education Materials: What Is Irritable Bowel ... Additional Instructions: Thank you for the opportunity for serving you today. You are stable for discharged . You are advised to: Follow-up with your PCP in 1 to 2 days as per referral to GI specialist for further evaluation regarding possible irritable bowel syndrome/disease Return to ED for worsening of symptoms Increase oral fluids Take medication as prescribed Print Language: Kiswahili Stand Alone Forms: Elenita Award Info., Patient Portal Info Letter PA/MANAGER STRATEGIC DEVELOPMENT Supervising Physician PA/MANAGER STRATEGIC DEVELOPMENT Supervising Physician: MD Delon
[2024-11-06 18:43] VITALS: BP 99/66; PULSE 70; RESP 16; TEMP 35.5; O2SAT 98
== END 2024-11-06 18:45 | disposition home or self-care (01) ==
PROVIDERS: Nurse Practitioner Family; Emergency Provider Emergency Medicine
DX: K58.0 Irritable bowel syndrome with diarrhea (principal)
CPT/HCPCS: 36415; 80053; 81001; 81025; 83690; 85025; 99283; Q0162

== ENCOUNTER 2024-12-24 22:12 | Emergency (ER) | payer MEDICAID, SELFPAY ==
[2024-12-24 22:30] VITALS: PULSE 122; RESP 16; O2SAT 99; BMI 23.2
[2024-12-24 22:36] VITALS: BP 105/70; PULSE 84; RESP 20; TEMP 36.9; O2SAT 100
--- NOTE | 2024-12-24 22:43 | XR_ITS ---
Examination: Complete OB ultrasound, less than 14 weeks, transabdominal Date and time of exam: December 24, 2024 1123 hours INDICATIONS: Onset pelvic pain today Technique: Obstetrical ultrasound images less than 14 weeks performed via transabdominal imaging Findings: A normal shaped single intrauterine gestation is present in the uterus. There are 2 pole measurements including 1.59 cm corresponding to 8 weeks 0 days gestational age and 1.23 cm corresponding to 7 weeks 3 days gestational age Ultrasonographic survey of visible and placental structures unremarkable. Amniotic fluid volume appears appropriate for this estimated gestational age. Ovaries obscured by bowel gas IMPRESSION: Early intrauterine gestation as above Adjacent subchorionic hemorrhage 25 x 5 x 11 mm, recommend short-term follow-up pelvic sonography, given the subchorionic hemorrhage.
[2024-12-24 23:00] LABS: Basophils # (Auto) 0.1 Thou/mm3 (0.0-0.2); Basophils % (Auto) 0 % (0-2.5); Eosinophils # (Auto) 0.1 Thou/mm3 (0.0-0.5); Eosinophils % (Auto) 1 % (0-10); Hematocrit 37.2 % (36.0-46.0); Hemoglobin 13.1 g/dL (12.0-16.0); Immature Granulocytes Auto 0.07 Thou/mm3 (0.00-0.00); Lymphocytes # (Auto) 1.7 Thou/mm3 (1.0-4.8); Lymphocytes % (Auto) 11 % (10-50); Mean Corpuscular HGB Conc 35.2 g/dl (31.0-37.0); Mean Corpuscular Hemoglobin 28.5 pg (25.0-35.0); Mean Corpuscular Volume 81 fL (80-100); Monocytes # (Auto) 0.9 Thou/mm3 (0.0-0.8); Monocytes % (Auto) 6 % (0-12); Neutrophils # (Auto) 12.5 Thou/mm3 (1.8-7.7); Neutrophils % (Auto) 82 % (37-80); Nucleated Red Blood Cell # 0.00 Thou/mm3 (0.00-0.00); Nucleated Red Blood Cell % 0 /100 WBC (0); Platelet Count 315 Thou/mm3 (140-440); RDW Standard Deviation 40.6 fL (36.4-46.3); Red Blood Count 4.60 Miln/mm3 (4.00-5.20); White Blood Count 15.4 Thou/mm3 (3.6-11.0)
[2024-12-24 23:19] LABS: Collection Type, Urine Voided
[2024-12-24 23:26] LABS: Bacteria,Urine Rare; Bilirubin,Urine Negative (Negative); Blood,Urine Negative (Negative); Clarity,Urine Turbid (Clear/Hazy); Color,Urine Yellow (Lt Yel-Yel); Glucose, Urine Negative (Negative); Ketones,Urine 4+ (Negative); Leukocyte Esterase,Urine Positive (Negative); Nitrite,Urine Negative (Negative); PH,Urine 6.0 (5.0-7.0); Protein,Urine 1+ (Neg - Trace); RBC,Urine 4 /hpf (0-3); Specific Gravity,Urine 1.038 (1.001-1.035); Squamous Epithelial Cell,Urine 30 /hpf (0-5); Urobilinogen,Urine Negative mg/dL (0.0-1.0); WBC,Urine 37 /hpf (0-5)
[2024-12-24 23:55] LABS: Alanine Aminotransferase 14 U/L (10-49); Albumin, Serum 4.9 gm/dL (3.5-5.0); Albumin/Globulin Ratio 1.8 (1.2-2.2); Alkaline Phosphatase 71 U/L (46-116); Aspartate Amino Transferase 19 U/L (0-34); BUN/Creatinine Ratio 14 Ratio (12-20); Bilirubin,Total 1.5 mg/dL (0.3-1.2); Blood Urea Nitrogen 7 mg/dL (9-23); Calcium 9.8 mg/dL (8.3-10.6); Calcium (Corrected) 9.8 mg/dL (8.5-10.1); Carbon Dioxide 22.1 mMol/L (20.0-31.0); Creatinine (Component) 0.5 mg/dL (0.6-1.3); Estimated Creatinine Clearance 134.9 mL/min (>60); Globulin 2.7 gm/dL (2.3-3.5); Glucose 93 mg/dL (74-106); Lipase 51 U/L (12-53); Total Protein 7.6 gm/dL (5.7-8.2); eGFR > 60 See Note
[2024-12-25 00:08] LABS: Anion Gap 18 (7-16); Chloride 101 mMol/L (98-107); Osmolality,Calculated 279 (275-295); Potassium 3.3 mMol/L (3.4-5.1); Sodium 141 mMol/L (136-145)
[2024-12-25] MEDS: SODIUM CHLORIDE 0.9% 1000 ML 1,000 ML 999 ML IV (00:39)
[2024-12-25] MEDS: ONDANSETRON INJ 2 MG/ML INJ 2 ML 4 MG IVP (00:52)
[2024-12-25 00:55] LABS: Beta HCG,Quantitative 153624 mIU/mL (<5.0)
--- NOTE | 2024-12-25 01:03 | PD.EDPREG ---
ED OB Contraction Preg RMI/HPI General Chief complaint: Abdominal Pain Stated complaint: NAUSEA, VOMITING, ABDOMINAL PAIN Time Seen by Provider: 12/24/24 22:32 Arrival date/time: 12/24/24 22:12 This is a case of 24-year-old female who came in in the emergency room due to abdominal pain nausea and vomiting for 2 days patient is 8 weeks twin with regular checkup last OB checkup was yesterday where ultrasound was performed and it is normal patient was also seen in the ER for abdominal pain in last week with normal result patient has unknown LMP patient menstrual period is irregular patient denies any vaginal bleeding vaginal discharge vaginal spotting denies any fever chills persistence of the symptoms thus patient decided to sought consult here in the emergency room Limitations: no limitations Related Data Home Medications ?Medication ?Instructions ?Recorded ?Confirmed vit no.37-iron fum 29 mg 37 tab PO QDAY 02/24/19 10/31/22 iron-folic acid 1 mg chewable tablet (PreNata) Previous Rx's ?Medication ?Instructions ?Recorded methocarbamol 750 mg tablet 750 mg PO Q8H spasm #24 tabs 02/24/24 meclizine 25 mg tablet 25 mg PO BID #14 tabs 04/30/24 naproxen 500 mg tablet (Naprosyn) 500 mg PO BID PRN pain #20 tabs 05/23/24 dicyclomine 20 mg tablet 20 mg PO QID PRN abdominal pain 11/06/24 #30 tabs prednisone 50 mg tablet 50 mg PO QDAY #7 tabs 11/06/24 cephalexin 500 mg capsule 500 mg PO QID 10 days #40 caps 12/25/24 Allergies Allergy/AdvReac Type Severity Reaction Status Date / Time No Known Allergies Allergy Verified 11/06/24 14:11 Review of Systems Review of Systems Systems Reviewed: All systems reviewed, normal except as documented Constitutional Constitutional: Reports system reviewed and no additional complaints, except as documented, Denies chills and Denies fever(s) ENT Ears, Nose, Mouth, and Throat: Denies dysphagia and Denies odynophagia Cardiovascular Cardiovascular: Reports system reviewed and no additional complaints, except as documented, Reports as per HPI, Denies chest pain and Denies dyspnea Respiratory Respiratory: Reports system reviewed and no additional complaints, except as documented and Denies dyspnea Gastrointestinal Gastrointestinal: Reports system reviewed and no additional complaints, except as documented, Reports as per HPI, Reports abdominal pain, Denies belching, Denies bloating, Denies change in bowel habits, Denies change in stool character, Denies coffee ground emesis, Denies constipation, Denies cramping, Denies diarrhea, Denies dyspepsia, Denies dysphagia, Denies early satiety, Denies excessive flatus, Denies fecal incontinence, Denies heartburn, Denies hematemesis, Denies hematochezia, Denies loose stools, Denies melena, Reports nausea, Denies odynophagia, Denies tenesmus and Reports vomiting Genitourinary Genitourinary: Reports system reviewed and no additional complaints, except as documented, Reports as per HPI, Denies abnormal vaginal bleeding, Denies dysuria, Denies urinary urgency, Denies vaginal discharge, Denies vaginal dryness and Denies vaginal pruritus Musculoskeletal Musculoskeletal: Reports system reviewed and no additional complaints, except as documented and Reports as per HPI Neurologic Neurologic: Reports system reviewed and no additional complaints, except as documented and Reports as per HPI Past Medical History Past Medical History CARDIAC: Negative Cardiac Disorders or Congestive Heart Failure RESPIRATORY: Negative Chronic Obstructive Pulmonary Disease (COPD) or Asthma GENITOURINARY: Negative Renal Disease REPRODUCTIVE: Positive Pelvic Inflammatory Disease ENDOCRINE: Negative Diabetes Mellitus Type 1 or Diabetes Mellitus Type 2 HEMATOLOGIC: Negative Sickle Cell Disease Social History SMOKING STATUS: Never smoker ED Exam General Limitations: Present no limitations General appearance: Present alert and in no apparent distress; Absent appears intoxicated, anxious, lethargic, obtunded or in distress Head Head exam: Present atraumatic, normocephalic and normal inspection Eye Eye exam: Present normal appearance, PERRL and EOMI ENT ENT exam: Present normal exam, normal oropharynx and mucous membranes moist Neck Neck exam: Present normal inspection, full ROM and trachea midline Chest Chest inspection: Present normal inspection and symmetric chest wall rise; Absent tenderness, rash or abscess Respiratory Respiratory exam: Present normal lung sounds bilaterally Cardiovascular Cardiovascular exam: Present regular rate, normal rhythm and normal heart sounds; Absent bradycardia, tachycardia, irregular rhythm or systolic murmur Abdominal Exam Abdominal exam: Present soft, normal bowel sounds and other (Patient have gravid uterus soft normal active bowel sound nontender no guarding no rebound no rigidity no CVA tenderness no bladder tenderness) Extremities Exam Extremities exam: Present normal inspection and full ROM Back Exam Back exam: Present normal inspection and full ROM Neurological Exam Neurological exam: Present alert, oriented X3, CN II-XII intact, normal gait and reflexes normal; Absent motor sensory deficit Psychiatric Psychiatric exam: Present normal affect and normal mood Skin Skin exam: Present warm, dry, intact and normal color Course Quality Measures none Orders Category Date Time Status US OB <= 14 weeks fetus Stat Exams 12/24/24 22:43 Completed ABO/RH Type Stat Lab 12/24/24 22:51 Completed Beta HCG,Quantitative Stat Lab 12/24/24 22:51 Completed CBC Stat Lab 12/24/24 22:51 Completed CMP [Comprehensive Metabolic Panel] Stat Lab 12/24/24 22:51 Completed Lipase Stat Lab 12/24/24 22:51 Completed Urinalysis Stat Lab 12/24/24 23:00 Completed Ondansetron Inj [Zofran Inj] Med 12/24/24 22:43 Discontinued 4 mg IVP X1 ONE Sodium Chloride 0.9% 1000 ml [Ns] 1,000 ml Med 12/24/24 22:44 Discontinued IV 999 mls/hr cefTRIAXone/D5w 1gm IV premix [Rocephin/D5w 1gm IV Med 12/25/24 00:56 Active premix] 1 gm in 50 ml IV X1 Vital Signs Vital signs: Vital Signs Temperature 98.5 F 12/24/24 22:36 Pulse Rate 84 12/24/24 22:36 Respiratory Rate 20 12/24/24 22:36 Blood Pressure 105/70 12/24/24 22:36 Pulse Oximetry (%) 100 12/24/24 22:36 Oxygen Delivery Method Room Air 12/24/24 22:36 Patient is afebrile not tachycardic not tachypneic BP stable not hypoxic oxygen saturation in room air 100% normal OB/Uterine Contractions MDM Narrative MDM Narrative:: This is a case of 24-year-old female who came in in the emergency room due to abdominal pain nausea and vomiting for 2 days patient is 8 weeks twin with regular checkup last OB checkup was yesterday where ultrasound was performed and it is normal patient was also seen in the ER for abdominal pain in last week with normal result patient has unknown LMP patient menstrual period is irregular patient denies any vaginal bleeding vaginal discharge vaginal spotting denies any fever chills persistence of the symptoms thus patient decided to sought consult here in the emergency room patient is awake alert oriented not in distress nontoxic looking lungs sound is clear no crackles no rales no retraction no stridor abdominal exam Patient have gravid uterus soft normal active bowel sound nontender no guarding no rebound no rigidity no CVA tenderness no bladder tenderness blood test showed leukocytosis at 15.4 patient is mild hypokalemia 3.3 patient was advised to eat banana every day and to recheck the potassium on his next PCP visit as an outpatient patient sodium is normal kidney and liver function is normal glucose is normal patient beta-hCG [id number] urinalysis showed WBC and urine suggestive of urinary tract infection ultrasound showed a early intrauterine gestation with 2 pole 1 is 8 weeks 1 is 7 weeks with subchorionic hemorrhage I spoke to Dr Doherty discussed patient condition history and physical examination relayed results of ultrasound and blood tests I was instructed to discharge the patient and to follow-up with patient OB on Friday and to give patient a ceftriaxone IV here in the emergency room and discharged with cephalexin patient was also given a bolus of normal saline and Zofran patient has no recurrence of vomiting abdominal pain improved abdominal exam reassessment is normal soft normal active bowel sounds no guarding no rebound no tenderness no rigidity at this point I discussed with the patient importance to follow-up with the OB for further evaluation and checkup and for her subchorionic hemorrhage and for evaluation of twin patient was discharged with cephalexin patient will continue medication that was prescribed with OB for his vomiting and nausea and for any worsening symptoms or any emergent concern she will return in the emergency room immediately or call 911 Patient was discharged with comfortable condition walking with stable gait. Patient verbalized no further complains explained diagnosis and answered patient question. Patient is comfortable with the proposed management plan including the need to follow up with his/her primary care physician and any specialist if applicable Discussed patient for any urgent condition or worsening sx, He/She needed to go to emergency room immediately or call 911. Patient acknowledge the responsibility to follow up as instructed and to monitor her/his symptoms. For any persistence of the symptoms for more than 3-5 days return precaution advised. Discussed the result of the test and was given printed discharge instruction Patient data External records reviewed:: [facility] previous records Clinical information provided by:: patient Social determinants that could affect healthcare access:: none Patient has the following chronic illnesses:: None How is presenting disease/condition affected by chronic disease/condition?: no chronic disease Evaluation data The following diagnostics were reviewed and interpreted by me:: lab results and radiology exam(s) Lab and/or radiology exams considered but not ordered:: Reviewed Interpretation Summary: Reviewed Medications / Prescriptions Medications or Prescriptions considered but not ordered:: Given Medication administrations:: Medication Administration History Ceftriaxone Sodium/Dextrose (Rocephin/D5w 1gm Iv Premix) 1 gm in 50 mls @ 100 mls/hr IV X1 ONE Stop: 12/25/24 01:25 Discontinued Medications Sodium Chloride (Ns) 1,000 mls @ 999 mls/hr IV .Q1H1M ONE Stop: 12/24/24 23:44 Last Admin: 12/25/24 00:39 Dose: 999 mls/hr Documented By: Ondansetron HCl (Ondansetron Inj 2 Mg/Ml Inj 2 Ml) 4 mg IVP X1 ONE; Protocol Stop: 12/24/24 22:44 Last Admin: 12/25/24 00:52 Dose: 4 mg Documented By: RC Given Consultations Consultation(s) initiated? (list below): Yes Consultation #1 (Physician, Specialty, Details): dr doherty discussed patient condition history and physical examination recently the result of the blood test and ultrasound I was instructed to discharge the patient follow-up with his OB space control supervisor from for checkup give Rocephin here in the emergency room and discharged with cephalexin Time: 01:13 Diagnosis OB Contractions Differential Diagnosis: other (Threatened abdominal pain in the urinary tract infection) Most likely diagnosis given after review of the tests above:: Urinary tract infection Admission Indicated Admission indicated?: not indicated Explain why admission is indicated or not indicated:: Not indicated Admission Request Was there a request for admission?: No Admission Attestation Admission request attestation: Not indicated Disposition Plan Disposition Plan: Discharge Discharge Attestation Discharge Attestation: The patient and all family members were given an opportunity to ask questions and understood the discharge instructions. Discharge instructions specifically effects, indications for sooner follow up or return to the emergency department, and the expected course of current diagnosis. Patient condition: Stable Discharge Plan Plan Patient Disposition: HOME (Self Care) Patient condition on transfer: Stable Prescriptions/Referrals Prescriptions/Med Rec: New cephalexin 500 mg capsule 500 mg PO QID 10 Days Qty: 40 0RF No Action PreNata 29 mg iron- 1 mg Tablet,Chewable 37 tab PO QDAY dicyclomine 20 mg tablet 20 mg PO QID PRN (Reason: abdominal pain) Qty: 30 0RF prednisone 50 mg tablet 50 mg PO QDAY Qty: 7 0RF methocarbamol 750 mg tablet 750 mg PO Q8H Qty: 24 0RF meclizine 25 mg tablet 25 mg PO BID Qty: 14 0RF naproxen [Naprosyn] 500 mg tablet 500 mg PO BID PRN (Reason: pain) Qty: 20 0RF Referrals: Patrice Sheppard MD [Primary Care Provider] - In 1 week Problem List Clinical Impression: Abdominal pain during , Urinary tract infection, Twin , Subchorionic hemorrhage in first trimester Patient/Caregiver Discharge Instructions Education Materials: Understanding Multiple , Understanding Urinary Tract ..., ED Abdominal Pain, Early , [facility] Subchorionic Hemorrhage Additional Instructions: Follow-up with your primary care physician in 2 days for reevaluation it is very important to see your OB space control supervisor tomorrow or on Friday for further evaluation and treatment of your twin subchorionic hemorrhage and for your checkup recurrence persistent worsening symptoms or any emergent concerns such as vaginal bleeding vaginal spotting vaginal discharge fever chills persistent abdominal pain etc. return to the emergency room immediately or call 911 continue your medication declegis for nausea and vomiting finish the course of antibiotic increase water intake keep hydrated Pedialyte for every bouts of vomiting is advised Print Language: Greek Stand Alone Forms: Elenita Award Info., Patient Portal Info Letter PA/SKYLAR Supervising Physician PA/SKYLAR Supervising Physician: Dr choi
[2024-12-25] MEDS: cefTRIAXone/D5w 1gm IV premix 1 GM/50 ML BAG IV (01:04)
== END 2024-12-25 01:48 | disposition home or self-care (01) ==
PROVIDERS: Nurse Practitioner Family; Emergency Provider Emergency Medicine; PCP Family Medicine
DX: O20.8 Other hemorrhage in early pregnancy (principal); O30.001 Twin pregnancy, unspecified number of placenta and unspecified number of amniotic sacs, first trimester; O23.41 Unspecified infection of urinary tract in pregnancy, first trimester; N39.0 Urinary tract infection, site not specified; O26.891 Other specified pregnancy related conditions, first trimester; R10.2 Pelvic and perineal pain; Z3A.08 8 weeks gestation of pregnancy
CPT/HCPCS: 36415; 76801; 80053; 81001; 83690; 84702; 85025; 86900; 86901; 96365; 96375; 99284; J0696; J2405; J7030

== ENCOUNTER 2025-01-28 19:12 | Emergency (ER) | payer MEDICAID, SELFPAY ==
[2025-01-28 19:14] VITALS: BMI 23.0
[2025-01-28 19:44] VITALS: BP 112/75; PULSE 102; RESP 18; TEMP 37.1; O2SAT 99
--- NOTE | 2025-01-28 19:56 | XR_ITS ---
Examination: Complete OB ultrasound, less than 14 weeks, transabdominal Date and time of exam: January 28, 2025 202 hours INDICATIONS: Right lower abdominal pain and pelvic pain today Technique: Obstetrical ultrasound images less than 14 weeks performed via transabdominal imaging Findings: A normal shaped single intrauterine gestation is present in the uterus. CRL 6.1 cm corresponds to 12 weeks 4 days gestational age Cardiac motion 166 BPM Adjacent subchorionic hemorrhage 12 x 10 mm Ultrasonographic survey of visible structures unremarkable. Amniotic fluid volume appears appropriate for this estimated gestational age. Right ovary 3.2 cm arterial flow. Left ovary 2.6 cm arterial flow. IMPRESSION: Viable intrauterine gestation 12 weeks 4 days Suggest short term follow-up given the subchorionic hemorrhage
--- NOTE | 2025-01-28 19:56 | XR_ITS ---
Examination: Abdomen sonogram, Limited Date and time of exam: January 28, 2025, 2021 hours INDICATIONS: Right lower abdominal pain onset today Technique: Real-time flowers scale transabdominal sonographic images of the upper abdomen obtained. Findings: No sonographic visualization of the IMPRESSION: No sonographic visualization appendix
--- NOTE | 2025-01-28 19:57 | PD.EDRME ---
Rapid Medical Screening Exam RME Arrival date/time: 01/28/25 19:12 25F with no significant PMH presents to ED with 1 day of RLQ/pelvic pain/cramping and N/V. Patient denies vaginal bleeding and dysuria. Patient is 12 weeks . Chief Complaint: Abdominal Pain Vital signs: Vital Signs Temperature 98.7 F 01/28/25 19:44 Pulse Rate 102 H 01/28/25 19:44 Respiratory Rate 18 01/28/25 19:44 Blood Pressure 112/75 01/28/25 19:44 Pulse Oximetry (%) 99 01/28/25 19:44 Oxygen Delivery Method Room Air 01/28/25 19:44
[2025-01-28 20:17] LABS: Basophils # (Auto) 0.0 Thou/mm3 (0.0-0.2); Basophils % (Auto) 0 % (0-2.5); Eosinophils # (Auto) 0.2 Thou/mm3 (0.0-0.5); Eosinophils % (Auto) 2 % (0-10); Hematocrit 34.1 % (36.0-46.0); Hemoglobin 11.6 g/dL (12.0-16.0); Immature Granulocytes Auto 0.05 Thou/mm3 (0.00-0.00); Lymphocytes # (Auto) 2.0 Thou/mm3 (1.0-4.8); Lymphocytes % (Auto) 19 % (10-50); Mean Corpuscular HGB Conc 34.0 g/dl (31.0-37.0); Mean Corpuscular Hemoglobin 28.6 pg (25.0-35.0); Mean Corpuscular Volume 84 fL (80-100); Monocytes # (Auto) 0.9 Thou/mm3 (0.0-0.8); Monocytes % (Auto) 9 % (0-12); Neutrophils # (Auto) 7.4 Thou/mm3 (1.8-7.7); Neutrophils % (Auto) 70 % (37-80); Nucleated Red Blood Cell # 0.00 Thou/mm3 (0.00-0.00); Nucleated Red Blood Cell % 0 /100 WBC (0); Platelet Count 260 Thou/mm3 (140-440); RDW Standard Deviation 42.4 fL (36.4-46.3); Red Blood Count 4.05 Miln/mm3 (4.00-5.20); White Blood Count 10.6 Thou/mm3 (3.6-11.0)
[2025-01-28 20:41] LABS: Alanine Aminotransferase 8 U/L (10-49); Albumin, Serum 4.2 gm/dL (3.5-5.0); Albumin/Globulin Ratio 1.8 (1.2-2.2); Alkaline Phosphatase 58 U/L (46-116); Anion Gap 12 (7-16); Aspartate Amino Transferase 12 U/L (0-34); BUN/Creatinine Ratio 8 Ratio (12-20); Bilirubin,Total 0.6 mg/dL (0.3-1.2); Blood Urea Nitrogen < 5 mg/dL (9-23); Calcium 9.7 mg/dL (8.3-10.6); Calcium (Corrected) 9.7 mg/dL (8.5-10.1); Carbon Dioxide 24.2 mMol/L (20.0-31.0); Chloride 103 mMol/L (98-107); Creatinine (Component) 0.6 mg/dL (0.6-1.3); Estimated Creatinine Clearance 111.4 mL/min (>60); Globulin 2.4 gm/dL (2.3-3.5); Glucose 82 mg/dL (74-106); Osmolality,Calculated 273 (275-295); Potassium 3.7 mMol/L (3.4-5.1); Sodium 139 mMol/L (136-145); Total Protein 6.6 gm/dL (5.7-8.2); eGFR > 60 See Note
[2025-01-28 20:43] LABS: Collection Type, Urine Clean Catch
[2025-01-28 20:53] LABS: Bilirubin,Urine Negative (Negative); Blood,Urine Negative (Negative); Clarity,Urine Clear (Clear/Hazy); Color,Urine Colorless (Lt Yel-Yel); Glucose, Urine Negative (Negative); Ketones,Urine Negative (Negative); Leukocyte Esterase,Urine Negative (Negative); Nitrite,Urine Negative (Negative); PH,Urine 6.5 (5.0-7.0); Protein,Urine Negative (Neg - Trace); RBC,Urine 1 /hpf (0-3); Specific Gravity,Urine 1.011 (1.001-1.035); Squamous Epithelial Cell,Urine 4 /hpf (0-5); Urobilinogen,Urine Negative mg/dL (0.0-1.0); WBC,Urine 2 /hpf (0-5)
[2025-01-28 21:16] LABS: Beta HCG,Quantitative 29630 mIU/mL (<5.0)
--- NOTE | 2025-01-28 23:16 | PD.EDABDPN ---
ED Abdominal Pain RME/HPI General Chief Complaint: Abdominal Pain Stated complaint: ABD PAIN, 12 WEEKS PREG Time seen by provider: 01/28/25 23:12 Arrival date/time: 01/28/25 19:12 RME / HPI RME / HPI narrative: 25F with no significant PMH presents to ED with 1 day of RLQ/pelvic pain/cramping and N/V. Patient denies vaginal bleeding and dysuria. Patient is 12 weeks . Patient denies any other complaints Related Data Home Medications ?Medication ?Instructions ?Recorded ?Confirmed vit no.37-iron fum 29 mg 37 tab PO QDAY 02/24/19 10/31/22 iron-folic acid 1 mg chewable tablet (PreNata) Previous Rx's ?Medication ?Instructions ?Recorded methocarbamol 750 mg tablet 750 mg PO Q8H spasm #24 tabs 02/24/24 meclizine 25 mg tablet 25 mg PO BID #14 tabs 04/30/24 naproxen 500 mg tablet (Naprosyn) 500 mg PO BID PRN pain #20 tabs 05/23/24 dicyclomine 20 mg tablet 20 mg PO QID PRN abdominal pain 11/06/24 #30 tabs prednisone 50 mg tablet 50 mg PO QDAY #7 tabs 11/06/24 ondansetron 4 mg disintegrating 4 mg PO Q8H PRN nausea and 12/25/24 tablet vomiting #10 tabs Allergies Allergy/AdvReac Type Severity Reaction Status Date / Time No Known Allergies Allergy Verified 01/28/25 19:13 Review of Systems Review of Systems Narrative Review of Systems: Review of system reviewed and within normal limits except mentioned in HPI ED Exam Narrative Physical exam: VITAL SIGNS: Reviewed. GENERAL APPEARANCE: Alert and interactive, follows commands, no acute distress, HEAD AND FACE: Non-traumatic. ENT: PERRL, pink conjunctivitis, eyelid no trauma, Mucous membrane moist. NECK: Supple, nontender, no nuchal rigidity. CHEST: No tenderness, no crepitus, no paradoxical movement, no retractions. LUNGS: Clear, well ventilated, symmetric, no rales, no wheezing, no ronchi, no stridor, good breath sounds bilaterally. HEART: Regular rate, regular rhythm, no murmur, no gallops. ABDOMEN: Soft, positive bowel sounds, nondistended, no guarding, nontender, no rebound, no masses, RECTAL: Deferred. GENITAL: Deferred. NEUROLOGICAL: Gross motor function intact sensory function intact, Appropriate for age. MUSCULOSKELETAL: low back nontender, full range of motion. EXTREMITIES: Nontender, full range of motion. SKIN: Color pink, dry, no rash, no lacerations, no abrasions, no contusions. LYMPHATICS: Deferred. Course Quality Measures none Orders Category Date Time Status US OB <= 14 weeks fetus Stat Exams 01/28/25 19:56 Completed US abdomen limited Stat Exams 01/28/25 19:56 Completed Beta HCG,Quantitative Stat Lab 01/28/25 20:10 Completed CBC Stat Lab 01/28/25 20:10 Completed CMP [Comprehensive Metabolic Panel] Stat Lab 01/28/25 20:10 Completed UA [Urinalysis] Stat Lab 01/28/25 20:28 Completed Urine Culture Stat Lab 01/28/25 20:28 Received Vital Signs Vital signs: Vital Signs Temperature 98.7 F 01/28/25 19:44 Pulse Rate 102 H 01/28/25 19:44 Respiratory Rate 18 01/28/25 19:44 Blood Pressure 112/75 01/28/25 19:44 Pulse Oximetry (%) 99 01/28/25 19:44 Oxygen Delivery Method Room Air 01/28/25 19:44 Abdominal Pain MDM MDM Narrative MDM Narrative:: 25F with no significant PMH presents to ED with 1 day of RLQ/pelvic pain/cramping and N/V. Patient denies vaginal bleeding and dysuria. Patient is 12 weeks . Patient denies any other complaints Patient's workup today all came back normal including normal urinalysis except for small subchorionic hemorrhage which the patient knows about it already from her previous ultrasound a month ago. She had a single live intrauterine gestation about 12 weeks. A good heartbeat of 166 bpm. Ultrasound of the abdomen showed no sign of appendicitis. Results discussed with the patient. Patient stable for discharge home. Patient data External records reviewed:: None Clinical information provided by:: patient Social determinants that could affect healthcare access:: none Patient has the following chronic illnesses:: None How is presenting disease/condition affected by chronic disease/condition?: no chronic disease Evaluation data The following diagnostics were reviewed and interpreted by me:: lab results and radiology exam(s) Lab and/or radiology exams considered but not ordered:: None Interpretation Summary: See results in MDM Medications / Prescriptions Medications or Prescriptions considered but not ordered:: None Medication administrations:: None Consultations Consultation(s) initiated? (list below): No Diagnosis Differential diagnosis abdominal pain: abdominal pain, acute appendicitis and constipation Most likely diagnosis given after review of the tests above:: Abdominal pain in early Admission Indicated Admission indicated?: not indicated Explain why admission is indicated or not indicated:: Stable Admission Request Was there a request for admission?: No Disposition Plan Disposition Plan: Discharge Discharge Attestation Discharge Attestation: The patient was given an opportunity to ask questions and understood the discharge instructions. Discharge instructions specifically effects, indications for sooner follow up or return to the emergency department, and the expected course of current diagnosis. Patient condition: Stable Discharge Plan Plan Patient Disposition: HOME (Self Care) Discharge Disposition comment: Stable Prescriptions/Referrals Prescriptions/Med Rec: No Action PreNata 29 mg iron- 1 mg Tablet,Chewable 37 tab PO QDAY dicyclomine 20 mg tablet 20 mg PO QID PRN (Reason: abdominal pain) Qty: 30 0RF prednisone 50 mg tablet 50 mg PO QDAY Qty: 7 0RF ondansetron 4 mg tablet,disintegrating 4 mg PO Q8H PRN (Reason: nausea and vomiting) Qty: 10 0RF methocarbamol 750 mg tablet 750 mg PO Q8H Qty: 24 0RF meclizine 25 mg tablet 25 mg PO BID Qty: 14 0RF naproxen [Naprosyn] 500 mg tablet 500 mg PO BID PRN (Reason: pain) Qty: 20 0RF Referrals: Kerry Burrows MD [Primary Care Provider] - In 1 week Problem List Clinical Impression: Abdominal pain affecting Patient/Caregiver Discharge Instructions Discharge Activity: activity as tolerated Education Materials: Abdominal Pain Additional Instructions: Thank you for the opportunity for serving you today. You are stable for discharged . You are advised to: Follow-up with your HEALTH CENTER MANAGER in 1 to 2 days Return to ED for worsening of symptoms Increase oral fluids Take Tylenol as needed for pain Print Language: Malaysian Stand Alone Forms: Elenita Award Info., Patient Portal Info Letter PA/SKYLAR Supervising Physician PA/SKYLAR Supervising Physician: MD Jeffrey
[2025-01-28 23:20] VITALS: BP 110/72; PULSE 75; RESP 18; TEMP 36.7; O2SAT 98
== END 2025-01-28 23:23 | disposition home or self-care (01) ==
PROVIDERS: Physician Assistant; Emergency Provider Emergency Medicine; PCP Student in an Organized Health Care Education/Training Program
DX: O26.891 Other specified pregnancy related conditions, first trimester (principal); R10.31 Right lower quadrant pain; R10.2 Pelvic and perineal pain; O20.8 Other hemorrhage in early pregnancy; Z3A.12 12 weeks gestation of pregnancy
CPT/HCPCS: 36415; 76705; 76801; 80053; 81001; 84702; 85025; 87086; 99283

== ENCOUNTER 2025-02-28 13:18 | Emergency (ER) | payer MEDICAID, SELFPAY ==
[2025-02-28 13:34] VITALS: BP 97/55; PULSE 94; RESP 20; TEMP 36.9; O2SAT 98
--- NOTE | 2025-02-28 13:45 | XR_ITS ---
Examination: Complete OB ultrasound, less than 14 weeks, transabdominal Date and time of exam: February 28, 2025 1355 hours INDICATIONS: Vaginal bleeding beginning 9:30 AM this morning Technique: Obstetrical ultrasound images less than 14 weeks performed via transabdominal imaging Findings: A normal shaped single intrauterine gestation is present in the uterus. presentation cephalic Cardiac motion 157 BPM Placenta fundal anterior grade 1 Umbilical cord insertion seen Amniotic fluid index 9.1 cm spine maternal right Cervix 2.3 cm Right ovary 3.0 cm arterial flow Left ovary 2.9 cm arterial flow Ultrasonographic survey of visible and placental structures unremarkable. Amniotic fluid volume appears appropriate for this estimated gestational age. Estimated gestational age 16 weeks 6 days Estimated weight 166 g IMPRESSION: Viable intrauterine gestation cephalic presentation.
--- NOTE | 2025-02-28 13:58 | EDRME_ITS ---
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
[2025-02-28 14:41] LABS: Basophils # (Auto) 0.1 Thou/mm3 (0.0-0.2); Basophils % (Auto) 1 % (0-2.5); Eosinophils # (Auto) 0.3 Thou/mm3 (0.0-0.5); Eosinophils % (Auto) 3 % (0-10); Hematocrit 34.2 % (36.0-46.0); Hemoglobin 11.1 g/dL (12.0-16.0); Immature Granulocytes Auto 0.12 Thou/mm3 (0.00-0.00); Lymphocytes # (Auto) 2.1 Thou/mm3 (1.0-4.8); Lymphocytes % (Auto) 20 % (10-50); Mean Corpuscular HGB Conc 32.5 g/dl (31.0-37.0); Mean Corpuscular Hemoglobin 27.8 pg (25.0-35.0); Mean Corpuscular Volume 86 fL (80-100); Monocytes # (Auto) 1.0 Thou/mm3 (0.0-0.8); Monocytes % (Auto) 9 % (0-12); Neutrophils # (Auto) 6.9 Thou/mm3 (1.8-7.7); Neutrophils % (Auto) 67 % (37-80); Nucleated Red Blood Cell # 0.00 Thou/mm3 (0.00-0.00); Nucleated Red Blood Cell % 0 /100 WBC (0); Platelet Count 238 Thou/mm3 (140-440); RDW Standard Deviation 46.5 fL (36.4-46.3); Red Blood Count 4.00 Miln/mm3 (4.00-5.20); White Blood Count 10.4 Thou/mm3 (3.6-11.0)
[2025-02-28 14:47] LABS: Collection Type, Urine Voided
[2025-02-28 14:59] LABS: Alanine Aminotransferase 9 U/L (10-49); Albumin, Serum 3.9 gm/dL (3.5-5.0); Albumin/Globulin Ratio 1.7 (1.2-2.2); Alkaline Phosphatase 63 U/L (46-116); Anion Gap 11 (7-16); Aspartate Amino Transferase 18 U/L (0-34); BUN/Creatinine Ratio 10 Ratio (12-20); Bilirubin,Total 0.5 mg/dL (0.3-1.2); Blood Urea Nitrogen 5 mg/dL (9-23); Calcium 9.0 mg/dL (8.3-10.6); Calcium (Corrected) 9.1 mg/dL (8.5-10.1); Carbon Dioxide 24.2 mMol/L (20.0-31.0); Chloride 105 mMol/L (98-107); Creatinine (Component) 0.5 mg/dL (0.6-1.3); Estimated Creatinine Clearance 133.7 mL/min (>60); Globulin 2.3 gm/dL (2.3-3.5); Glucose 76 mg/dL (74-106); Osmolality,Calculated 275 (275-295); Potassium 4.1 mMol/L (3.4-5.1); Sodium 140 mMol/L (136-145); Total Protein 6.2 gm/dL (5.7-8.2); eGFR > 60 See Note
[2025-02-28 15:31] LABS: Beta HCG,Quantitative 11931 mIU/mL (<5.0)
[2025-02-28 15:33] LABS: Bilirubin,Urine Negative (Negative); Blood,Urine Negative (Negative); Clarity,Urine Clear (Clear/Hazy); Color,Urine Lt-Yellow (Lt Yel-Yel); Glucose, Urine Negative (Negative); Ketones,Urine Negative (Negative); Leukocyte Esterase,Urine Negative (Negative); Nitrite,Urine Negative (Negative); PH,Urine 6.5 (5.0-7.0); Protein,Urine Negative (Neg - Trace); RBC,Urine < 1 /hpf (0-3); Specific Gravity,Urine 1.019 (1.001-1.035); Squamous Epithelial Cell,Urine 9 /hpf (0-5); Transitional Epi Cells,Urine < 1 /hpf (0-5); Urobilinogen,Urine Negative mg/dL (0.0-1.0); WBC,Urine < 1 /hpf (0-5)
--- NOTE | 2025-02-28 15:44 | EDNOTE_ITS ---
ED General RME/HPI General Chief complaint: OB/Uterine Contractions Stated complaint: POSS LEAKING AMNIOTIC FLUID, [id number] Time Seen by Provider: 02/28/25 13:43 Arrival date/time: 02/28/25 13:18 CC: Vaginal discharge during HPI patient was furred from the midlevel wanted to make sure the patient had sufficient amniotic fluid in her as the patient had some discharge that looked abnormal . The patient denies any vaginal bleeding vaginal discharge at the time of the exam the patient has had no discharge for the past 2 hours. Patient states she is a with a prior demise while carrying twins. Patient is anxious secondary to her history of the prior mentioned . Patient is awake alert oriented nontoxic-appearing not in any acute distress. RME / HPI RME / HPI narrative: 02/28/25 13:18 This is a case of 35-year-old female with no medical history came in in the emergency room due to vaginal bleeding and pelvic cramping today patient is 17 weeks patient went to his marriage and family social worker and was told that his water is leaking thus advised to go to ER for further evaluation Related Data Home Medications ?Medication ?Instructions ?Recorded ?Confirmed vit no.37-iron fum 29 mg 37 tab PO QDAY 02/2410/31/22 iron-folic acid 1 mg chewable tablet (PreNata) Previous Rx's ?Medication ?Instructions ?Recorded methocarbamol 750 mg tablet 750 mg PO Q8H spasm #24 ta bs 02/24/24 meclizine 25 mg tablet 25 mg PO BID #14 tabs naproxen 500 mg tablet (Naprosyn) 500 mg PO BID PRN pa in #20 tabs 05/23/24 dicyclomine 20 mg tablet 20 mg PO QID PRN abdominal p ain 11/06/24 #30 tabs prednisone 50 mg tablet 50 mg PO QDAY #7 tabs ondansetron 4 mg disintegrating 4 mg PO Q8H PRN nausea and 12/25/24 tablet vomiting #10 tabs Allergies Allergy/AdvReac Type Severity Reaction Status Date / Time No Known Allergies Allergy Verified 02/28/25 13:21 Review of Systems Review of Systems Narrative Review of Systems: GEN: No fever, no chills, no weight loss EYES: No discharge, no visual changes, no pain HEENT: No ear pain, no congestion, no sore throat PULM: No shortness of breath, no cough, no congestion CV: No chest pain, no dyspnea on exertion, no palpitations GI: No nausea, no vomiting, no diarrhea, no pain, no constipation : No frequency, no urgency, no dysuria MUSC/SKEL: No joint pain, no back pain SKIN: No rash PSYCH: No hallucinations, no depression HEME/LYMPH: No easy bleeding or bruising tendencies NEURO: No weakness, no headache Past Medical History Past Medical History CARDIAC: Negative Cardiac Disorders or Congestive Heart Failure RESPIRATORY: Negative Chronic Obstructive Pulmonary Disease (COPD) or Asthma GENITOURINARY: Negative Renal Disease REPRODUCTIVE: Positive Pelvic Inflammatory Disease ENDOCRINE: Negative Diabetes Mellitus Type 1 or Diabetes Mellitus Type 2 HEMATOLOGIC: Negative Sickle Cell Disease Social History SMOKING STATUS: Never smoker ED Exam Narrative Physical exam: [General: Not in any acute distress Head normocephalic HEENT: Within acceptable limits Neck is supple nontender Chest equal chest rise nontender to palpation Respiratory: Clear to auscultation no wheezes crackles or rubs CV: Rate rhythm is regular no murmurs rubs or clicks Abdomen is distended secondary to soft nontender no masses positive bowel sounds all 4 quadrants Back: No CVA tenderness no spinous process tenderness from cervical spine thoracic and lumbar spine Skin: Intact no petechiae rash induration ulceration or crepitus Extremities: Moving all extremity against resistance cap refill less than 2 seconds neurosensory intact Neuro: Awake alert oriented x3 Glascow coma 15 no focal deficits] Course Quality Measures none Orders Category Date Time Status US OB <= 14 weeks fetus Stat Exams 02/28/25 13:45 Completed ABO/RH Type Stat Lab 02/28/25 13:52 Completed Beta HCG,Quantitative Stat Lab 02/28/25 13:52 Completed CBC Stat Lab 02/28/25 13:52 Completed CMP [Comprehensive Metabolic Panel] Stat Lab 02/28/25 13:52 Completed Urinalysis Stat Lab 02/28/25 14:20 Completed Vital Signs Vital signs: Vital Signs Temperature 98.4 F 02/28/25 13:34 Pulse Rate 94 02/28/25 13:34 Respiratory Rate 20 02/28/25 13:34 Blood Pressure 97/55 L 02/28/25 13:34 Pulse Oximetry (%) 98 02/28/25 13:34 Oxygen Delivery Method Room Air 02/28/25 13:34 Discharge Plan Plan Patient Disposition: HOME (Self Care) Patient condition on transfer: Stable Prescriptions/Referrals Prescriptions/Med Rec: No Action PreNata 29 mg iron- 1 mg Tablet,Chewable 37 tab PO QDAY dicyclomine 20 mg tablet 20 mg PO QID PRN (Reason: abdominal pain) Qty: 30 0RF prednisone 50 mg tablet 50 mg PO QDAY Qty: 7 0RF ondansetron 4 mg tablet,disintegrating 4 mg PO Q8H PRN (Reason: nausea and vomiting) Qty: 10 0RF methocarbamol 750 mg tablet 750 mg PO Q8H Qty: 24 0RF meclizine 25 mg tablet 25 mg PO BID Qty: 14 0RF naproxen [Naprosyn] 500 mg tablet 500 mg PO BID PRN (Reason: pain) Qty: 20 0RF Referrals: [facility] ([facility]),Rima Quarles MD [Physician, [employer]] - In 1 week No Primary/Family,Physician [Primary Care Provider] - In 1 week Problem List Clinical Impression: related condition in second trimester Patient/Caregiver Discharge Instructions Print Language: Serbian Stand Alone Forms: [employer] Award Info., Work/School Release, Patient Portal Info Letter SANTHOSH/SKYLAR Supervising Physician SANTHOSH/SKYLAR Supervising Physician: Palmer Pond ENP [facility] Clinical Information Provided by patient Medical Records Reviewed [facility] Meds/Rx Considered, not Ordered None Labs/Rad/Tests considered, not Ordered None Chronic Illness/Social Conditions Add or document further as needed: EKG EKG not done Lab Interpretation Lab(s) interpretation(s): CBC shows no leukocytosis and anemia of 11.1 and 34.2 respectively in the hemoglobin and hematocrit. No thrombocytopenia. CMP she has no significant electrolyte imbalances renal impairment transaminitis or T. bili elevation. Quantitative hCG at 11,931. Urine is negative for urinary tract infection ABO Rh is O+. Imaging Provider imaging interpretation(s): ultrasound shows a transverse lie and estimated age of 16 weeks and 6 days, with comments regarding sufficient amniotic fluid for this stage of the . Radiology reports / interpretation(s): Patient is to follow-up with her marriage and family social worker closely it appears there is no amniotic leak as the patient has had no discharge since the initial incident 11:00 this morning and currently has no discharging occurring. Medication Administration(s) none Dispositon Disposition: Discharge Home
[2025-02-28 16:32] VITALS: BP 128/74; PULSE 68; RESP 18; TEMP 36.4; O2SAT 100
== END 2025-02-28 16:33 | disposition home or self-care (01) ==
PROVIDERS: Nurse Practitioner Family; Emergency Provider Emergency Medicine
DX: O20.9 Hemorrhage in early pregnancy, unspecified (principal); O99.891 Other specified diseases and conditions complicating pregnancy; R10.2 Pelvic and perineal pain; Z3A.16 16 weeks gestation of pregnancy
CPT/HCPCS: 36415; 76801; 80053; 81001; 84702; 85025; 86900; 86901; 99283

== ENCOUNTER 2025-03-31 05:33 | Observation (INO) | payer MEDICAID, SELFPAY ==
[2025-03-31 05:44] VITALS: BMI 25.6
[2025-03-31 05:51] VITALS: BP 107/76; PULSE 88
[2025-03-31 05:52] VITALS: BP 107/76; PULSE 88; RESP 100; RESP 17; TEMP 36.7
[2025-03-31 06:34] LABS: Collection Type, Urine Clean Catch
[2025-03-31 07:14] VITALS: BP 99/62; PULSE 83
[2025-03-31 07:17] LABS: Bilirubin,Urine Negative (Negative); Blood,Urine Negative (Negative); Clarity,Urine Clear (Clear/Hazy); Color,Urine Lt-Yellow (Lt Yel-Yel); Glucose, Urine Negative (Negative); Ketones,Urine Negative (Negative); Leukocyte Esterase,Urine Positive (Negative); Nitrite,Urine Negative (Negative); PH,Urine 7.0 (5.0-7.0); Protein,Urine Negative (Neg - Trace); RBC,Urine 1 /hpf (0-3); Specific Gravity,Urine 1.021 (1.001-1.035); Squamous Epithelial Cell,Urine 11 /hpf (0-5); Urobilinogen,Urine Negative mg/dL (0.0-1.0); WBC,Urine 2 /hpf (0-5)
[2025-03-31 07:19] LABS: Sperm,Urine Present
--- NOTE | 2025-03-31 07:57 | XR_ITS ---
EXAMINATION: age Limited TECHNIQUE: Grayscale sonographic transabdominal images pelvis Date and time: March 31, 2025, 0904 hours INDICATIONS: Lower abdominal pelvic pain today, unknown weight, unknown cervical length FINDINGS: Viable intrauterine gestation in cephalic presentation. Cardiac motion 160 bpm Estimated weight 396.1 g. Estimated age 21 weeks 0 days Amniotic fluid index 18.5 cm Cervix 4.0 cm closed IMPRESSION: Viable intrauterine gestation in cephalic presentation
[2025-03-31 09:57] LABS: BVAG Candida Negative (Negative); Bacterial Vaginosis Markers Negative (Negative); Candida glabrata Negative (Negative); Candida krusei PCR Negative (Negative); Trichomonas Negative (Negative)
[2025-03-31] MEDS: ACETAMINOPHEN 325 MG TABLET 650 MG PO (10:20)
[2025-03-31] MEDS: AMOXICILLIN/POT CLAV 875 TABLET 1 TAB PO (10:53)
== END 2025-03-31 11:20 | disposition home or self-care (01) ==
PROVIDERS: Admitting Provider Obstetrics & Gynecology; Visit Provider Obstetrics & Gynecology
DX: O26.892 Other specified pregnancy related conditions, second trimester (principal); Z3A.21 21 weeks gestation of pregnancy; R10.30 Lower abdominal pain, unspecified
CPT/HCPCS: 59025; 59899; 76815; 81001; 81514; A9270

== ENCOUNTER 2025-04-18 14:46 | Observation (INO) | payer MEDICAID, SELFPAY ==
[2025-04-18] VITALS (25 sets, daily range): BP systolic 107; BP diastolic 60; PULSE 85–105; RESP 18–99; TEMP 36.8; O2SAT 95–100; BMI 26.8
--- NOTE | 2025-04-18 15:06 | XR_ITS ---
Examination: Complete OB ultrasound greater than 14 weeks Date and time of exam: April 18, 2025, 1523 hours INDICATIONS: Onset pelvic cramping today Findings: Viable intrauterine single fetus with single amniotic sac presentation breech Cardiac motion 144 bpm Placenta fundal grade 2 Umbilical cord insertion 3 vessels seen Amniotic fluid volume adequate spine anterior Cervix 3.2 cm Ovaries obscured by bowel gas. Composite estimated gestational age based on BPD, head circumference, abdominal circumference, femur length is 23 weeks 5 days Estimated weight 606 g. Survey of intracranial anatomy, spinal anatomy, abdominal anatomy, four-chamber heart performed with no abnormalities identified. Impression: Viable intrauterine gestation breech presentation.
[2025-04-18 15:44] LABS: Collection Type, Urine Clean Catch
[2025-04-18 15:47] LABS: Basophils # (Auto) 0.1 Thou/mm3 (0.0-0.2); Basophils % (Auto) 1 % (0-2.5); Eosinophils # (Auto) 0.2 Thou/mm3 (0.0-0.5); Eosinophils % (Auto) 1 % (0-10); Hematocrit 35.5 % (36.0-46.0); Hemoglobin 11.5 g/dL (12.0-16.0); Immature Granulocytes Auto 0.25 Thou/mm3 (0.00-0.00); Lymphocytes # (Auto) 1.6 Thou/mm3 (1.0-4.8); Lymphocytes % (Auto) 15 % (10-50); Mean Corpuscular HGB Conc 32.4 g/dl (31.0-37.0); Mean Corpuscular Hemoglobin 28.8 pg (25.0-35.0); Mean Corpuscular Volume 89 fL (80-100); Monocytes # (Auto) 0.9 Thou/mm3 (0.0-0.8); Monocytes % (Auto) 8 % (0-12); Neutrophils # (Auto) 8.1 Thou/mm3 (1.8-7.7); Neutrophils % (Auto) 73 % (37-80); Nucleated Red Blood Cell # 0.00 Thou/mm3 (0.00-0.00); Nucleated Red Blood Cell % 0 /100 WBC (0); Platelet Count 215 Thou/mm3 (140-440); RDW Standard Deviation 50.7 fL (36.4-46.3); Red Blood Count 3.99 Miln/mm3 (4.00-5.20); White Blood Count 11.1 Thou/mm3 (3.6-11.0)
[2025-04-18 15:59] LABS: Creatinine,Random Urine 36 mg/dL (30-125); Protein Total, Random Urine 9 mg/dL (1-14)
[2025-04-18 16:06] LABS: Fibrinogen 370 mg/dL (175-375); INR 1.0 (0.9-1.3); Partial Thromboplastin Time 28.4 Seconds (22.0-36.0); Prothrombin Time 10.3 Seconds (9.0-12.2)
[2025-04-18 16:15] LABS: Bacteria,Urine Rare; Bilirubin,Urine Negative (Negative); Blood,Urine Negative (Negative); Clarity,Urine Clear (Clear/Hazy); Color,Urine Lt-Yellow (Lt Yel-Yel); Glucose, Urine Negative (Negative); Ketones,Urine Negative (Negative); Leukocyte Esterase,Urine Positive (Negative); Nitrite,Urine Negative (Negative); PH,Urine 7.0 (5.0-7.0); Protein,Urine Negative (Neg - Trace); RBC,Urine 2 /hpf (0-3); Specific Gravity,Urine 1.010 (1.001-1.035); Squamous Epithelial Cell,Urine 6 /hpf (0-5); Urobilinogen,Urine Negative mg/dL (0.0-1.0); WBC,Urine 3 /hpf (0-5)
[2025-04-18 16:19] LABS: Alanine Aminotransferase 9 U/L (10-49); Albumin, Serum 3.9 gm/dL (3.5-5.0); Albumin/Globulin Ratio 2.0 (1.2-2.2); Alkaline Phosphatase 66 U/L (46-116); Anion Gap 10 (7-16); Aspartate Amino Transferase 18 U/L (0-34); BUN/Creatinine Ratio 10 Ratio (12-20); Bilirubin,Total 0.4 mg/dL (0.3-1.2); Blood Urea Nitrogen < 5 mg/dL (9-23); Calcium 8.9 mg/dL (8.3-10.6); Calcium (Corrected) 9.0 mg/dL (8.5-10.1); Carbon Dioxide 24.9 mMol/L (20.0-31.0); Chloride 106 mMol/L (98-107); Creatinine (Component) 0.5 mg/dL (0.6-1.3); Estimated Creatinine Clearance 151.2 mL/min (>60); Globulin 2.0 gm/dL (2.3-3.5); Glucose 81 mg/dL (74-106); LDH (Lactate Dehydrogenase) 166 U/L (120-246); Osmolality,Calculated 277 (275-295); Potassium 3.8 mMol/L (3.4-5.1); Sodium 141 mMol/L (136-145); Total Protein 5.9 gm/dL (5.7-8.2); Uric Acid 3.4 mg/dL (3.1-7.8); eGFR > 60 See Note
== END 2025-04-18 17:17 | disposition home or self-care (01) ==
PROVIDERS: Admitting Provider Obstetrics & Gynecology; Visit Provider Obstetrics & Gynecology
DX: O26.892 Other specified pregnancy related conditions, second trimester (principal); Z3A.23 23 weeks gestation of pregnancy; R51.9 Headache, unspecified; R10.9 Unspecified abdominal pain
CPT/HCPCS: 36415; 59899; 76805; 80053; 81001; 82570; 83615; 84156; 84550; 85025; 85384; 85610; 85730

== ENCOUNTER 2025-05-05 15:53 | Observation (INO) | payer MEDICAID, SELFPAY ==
[2025-05-05] VITALS (23 sets, daily range): BP systolic 113; BP diastolic 75; PULSE 87–109; RESP 18–98; TEMP 36.5; O2SAT 96–99; BMI 27.3
--- NOTE | 2025-05-05 16:08 | XR_ITS ---
Examination: Transvaginal ultrasound of the pelvis, limited Technique: Transvaginal sonographic images pelvis performed using flowers scale imaging Exam date and time: May 05, 2025, 1627 hours INDICATIONS: Onset left lower abdominal pain today, pelvic pain FINDINGS: Cervix 5.4 cm close IMPRESSION: Cervix 5.4 cm closed.
[2025-05-05 16:36] LABS: Collection Type, Urine Clean Catch
[2025-05-05 16:48] LABS: ROM Kit Lot # 58106258
[2025-05-05 16:49] LABS: ROM Kit Exp Date# 04/11/28; ROM Swab Mixed By: SANCF1; Rupture of Fetal Membranes Negative (Negative); Swb Mxed in Solvent 1 min? Yes
[2025-05-05 16:55] LABS: Amorphous Crystals,Urine Present (Absent); Bilirubin,Urine Negative (Negative); Blood,Urine Negative (Negative); Clarity,Urine Clear (Clear/Hazy); Color,Urine Lt-Yellow (Lt Yel-Yel); Glucose, Urine Negative (Negative); Ketones,Urine Negative (Negative); Leukocyte Esterase,Urine Positive (Negative); Nitrite,Urine Negative (Negative); PH,Urine 6.5 (5.0-7.0); Protein,Urine Negative (Neg - Trace); RBC,Urine < 1 /hpf (0-3); Specific Gravity,Urine 1.020 (1.001-1.035); Squamous Epithelial Cell,Urine 6 /hpf (0-5); Urobilinogen,Urine Negative mg/dL (0.0-1.0); WBC,Urine 1 /hpf (0-5)
--- NOTE | 2025-05-05 20:25 | PD.LDPN ---
Documentation for date of: 05/05/25 OB Labor Progress Note Pelvic Exam Amniotic membrane status: Leaking Contractions Monitor mode: External Contraction frequency: OCCASIONAL Contraction intensity: Mild Assessment and Plan Comments: Triage Note Trudy is a 25yo with SIUP at 26&2wk presenting to L&D for concern for uterine cramping and loss of fluid. She notes leaking fluid beyond urination- not continuous. She notes no vaginal bleeding. Normal movement. ROS negative other than what was described above. Vitals wnl, afebrile General: well developed, well nourished, no acute distress, conversant Cardiac: normal heart rate Lungs: breathing without distress Abdomen: soft, gravid, non-tender, no rebound or guarding Extremities: no edema of BLE FHRT reassuring for gestational age with +accels, no decels, mod veda [place]: no ctx pattern Radiology: Transvaginal cervical length: Cervix 5.4 cm closed. Labs: Amnisure: negative Urinalysis: wnl Vaginitis swab: pending Assessment: Trudy is a 25yo with SIUP at 26&2wk with no evidence of pre-term labor based on normal cervical length. No evidence of ROM based on negative AmniSure. Reassuring status. Vitals wnl, benign exam. Plan: -Vaginitis swab pending, patient instructed to call L&D tomorrow to request results of swab -Follow up with OBGYN within 1 week -Return precautions discussed Carmen Strong MD
[2025-05-06 09:42] LABS: BVAG Candida Negative (Negative); Bacterial Vaginosis Markers Negative (Negative); Candida glabrata Negative (Negative); Candida krusei PCR POSITIVE (Negative); Trichomonas Negative (Negative)
== END 2025-05-05 18:17 | disposition home or self-care (01) ==
PROVIDERS: Admitting Provider Obstetrics & Gynecology; Visit Provider Obstetrics & Gynecology
DX: O47.02 False labor before 37 completed weeks of gestation, second trimester (principal); Z3A.26 26 weeks gestation of pregnancy
CPT/HCPCS: 59899; 76830; 81001; 81514; 84112

== ENCOUNTER 2025-05-19 22:15 | Observation (INO) | payer MEDICAID, SELFPAY ==
[2025-05-19] VITALS (23 sets, daily range): BP systolic 101–111; BP diastolic 60–72; PULSE 80–106; RESP 20–98; TEMP 36.7; O2SAT 92–99; BMI 28.0
--- NOTE | 2025-05-19 23:01 | XR_ITS ---
Examination: Complete OB ultrasound greater than 14 weeks Date and time of exam: May 12, 2025, 0109 hours INDICATIONS: Pelvic contractions beginning 2 days ago Findings: Viable intrauterine single fetus with single amniotic sac presentation transverse Cardiac motion 144 bpm Placenta fundal grade 1 Umbilical cord insertion seen Amniotic fluid index 16.5 cm spine anterior Cervix 5.2 cm Ovaries obscured by bowel gas. Composite estimated gestational age based on BPD, head circumference, abdominal circumference, femur length is 28 weeks 6 days Estimated weight 1355.7 g. Survey of intracranial anatomy, spinal anatomy, abdominal anatomy, four-chamber heart performed with no abnormalities identified. Impression: Viable intrauterine gestation in transverse presentation.
[2025-05-19] MEDS: SODIUM CHLORIDE 0.9% 1000 ML 1,000 ML 999 ML IV (23:15)
[2025-05-19 23:36] LABS: Collection Type, Urine Clean Catch
[2025-05-19 23:41] LABS: Basophils # (Auto) 0.1 Thou/mm3 (0.0-0.2); Basophils % (Auto) 1 % (0-2.5); Eosinophils # (Auto) 0.3 Thou/mm3 (0.0-0.5); Eosinophils % (Auto) 2 % (0-10); Hematocrit 37.5 % (36.0-46.0); Hemoglobin 12.5 g/dL (12.0-16.0); Immature Granulocytes Auto 0.48 Thou/mm3 (0.00-0.00); Lymphocytes # (Auto) 2.4 Thou/mm3 (1.0-4.8); Lymphocytes % (Auto) 19 % (10-50); Mean Corpuscular HGB Conc 33.3 g/dl (31.0-37.0); Mean Corpuscular Hemoglobin 29.3 pg (25.0-35.0); Mean Corpuscular Volume 88 fL (80-100); Monocytes # (Auto) 1.0 Thou/mm3 (0.0-0.8); Monocytes % (Auto) 8 % (0-12); Neutrophils # (Auto) 8.1 Thou/mm3 (1.8-7.7); Neutrophils % (Auto) 65 % (37-80); Nucleated Red Blood Cell # 0.00 Thou/mm3 (0.00-0.00); Nucleated Red Blood Cell % 0 /100 WBC (0); Platelet Count 216 Thou/mm3 (140-440); RDW Standard Deviation 47.3 fL (36.4-46.3); Red Blood Count 4.26 Miln/mm3 (4.00-5.20); White Blood Count 12.4 Thou/mm3 (3.6-11.0)
[2025-05-19 23:47] LABS: Amorphous Crystals,Urine Present (Absent); Bacteria,Urine Rare; Bilirubin,Urine Negative (Negative); Blood,Urine Negative (Negative); Clarity,Urine Turbid (Clear/Hazy); Color,Urine Lt-Yellow (Lt Yel-Yel); Glucose, Urine Negative (Negative); Ketones,Urine Negative (Negative); Leukocyte Esterase,Urine Positive (Negative); Nitrite,Urine Negative (Negative); PH,Urine 7.0 (5.0-7.0); Protein,Urine Negative (Neg - Trace); RBC,Urine 2 /hpf (0-3); Specific Gravity,Urine 1.012 (1.001-1.035); Squamous Epithelial Cell,Urine 27 /hpf (0-5); Urobilinogen,Urine Negative mg/dL (0.0-1.0); WBC,Urine 17 /hpf (0-5)
[2025-05-20] VITALS (11 sets, daily range): BP systolic 95–99; BP diastolic 53–57; PULSE 90–98; O2SAT 93–98
[2025-05-20 00:01] LABS: Alanine Aminotransferase 11 U/L (10-49); Albumin, Serum 4.3 gm/dL (3.5-5.0); Albumin/Globulin Ratio 2.0 (1.2-2.2); Alkaline Phosphatase 80 U/L (46-116); Anion Gap 10 (7-16); Aspartate Amino Transferase 24 U/L (0-34); BUN/Creatinine Ratio 12 Ratio (12-20); Bilirubin,Total 0.4 mg/dL (0.3-1.2); Blood Urea Nitrogen 6 mg/dL (9-23); Calcium 9.3 mg/dL (8.3-10.6); Calcium (Corrected) 9.3 mg/dL (8.5-10.1); Carbon Dioxide 24.4 mMol/L (20.0-31.0); Chloride 105 mMol/L (98-107); Creatinine (Component) 0.5 mg/dL (0.6-1.3); Estimated Creatinine Clearance 154.5 mL/min (>60); Globulin 2.2 gm/dL (2.3-3.5); Glucose 97 mg/dL (74-106); Lipase 38 U/L (12-53); Osmolality,Calculated 275 (275-295); Potassium 4.1 mMol/L (3.4-5.1); Sodium 139 mMol/L (136-145); Total Protein 6.5 gm/dL (5.7-8.2); eGFR > 60 See Note
[2025-05-20 00:08] LABS: FFN Specimen Descripton Clr Colrless Aqueous; Fetal Fibronectin Negative (Negative)
--- NOTE | 2025-05-20 02:46 | PRELIM_ITS ---
Obstetric ultrasound. May 20, 2025 at 0109 hours Clinical history: Uterine contractions. Comparison: No prior study is available for comparison. Findings: Single intrauterine gestation with cardiac motion of 144 bpm. presentation is transverse. Placenta is fundal, grade 1. Amniotic fluid index is 16.5 cm. Cervix is 5.2 cm long. The maternal ovaries have normal Doppler flow bilaterally. The anatomy is unremarkable. Ultrasound gestational age is 28 weeks 6 days, CHARLEE August 06, 2025. Estimated weight is 1355 g. Impression: Normal intrauterine gestation. Report Electronically Signed By: Kevin Chen 05/20/2025 2:45:18 AM [EST]
== END 2025-05-20 02:07 | disposition home or self-care (01) ==
PROVIDERS: Admitting Provider Obstetrics & Gynecology; Visit Provider Obstetrics & Gynecology
DX: O47.03 False labor before 37 completed weeks of gestation, third trimester (principal); Z3A.28 28 weeks gestation of pregnancy; O32.2XX0 Maternal care for transverse and oblique lie, not applicable or unspecified
CPT/HCPCS: 36415; 59025; 59899; 76805; 80053; 81001; 82731; 83690; 85025; J7030